=== PATIENT | male | born 1950 | race Caucasian/White ===

== ENCOUNTER 2019-09-26 08:23 | Outpatient (CLI) | payer BC, SELFPAY ==
[2019-09-26 08:44] LABS: Basophils Percent Auto 0.8 % (0.2-1.2); Eosinophils Absolute Auto 0.4 K/mm3 (0-0.3); Eosinophils Percent Auto 7.9 % (0-4.4); Hematocrit 37.1 % (42.0-52.0); Hemoglobin 12.4 g/dL (14.0-18.0); Immature Granulocyte Absolute 0.02 K/mm3 (0.00-0.031); Immature Granulocyte Percent A 0.4 % (0-0.5); Lymphocytes Absolute Auto 0.82 K/mm3 (0.9-3.2); Lymphocytes Percent Auto 17.4 % (18.3-44.2); Mean Corpuscular HGB Conc 33.4 g/dl (32-36); Mean Corpuscular Hemoglobin 35.1 pg (26-34); Mean Corpuscular Volume 105.1 fl (80-100); Mean Platelet Volume 8.7 fl (7.4-10.4); Monocytes Absolute Auto 0.6 K/mm3 (0.1-0.6); Monocytes Percent Auto 11.7 % (2.6-8.5); Neutrophils Absolute Auto 2.9 K/mm3 (1.3-6.7); Neutrophils Percent Auto 61.8 % (45.5-73.1); Platelet Count Result 123 k/mm3 (150-375); Red Blood Count 3.53 M/mm3 (4.6-6.20); Red Cell Distribution Width 13.2 % (11.5-14.5); White Blood Count 4.7 K/mm3 (4.5-10.0)
[2019-09-26 10:55] LABS: Blood Urea Nitrogen 29 mg/dL (9-20); Calcium 9.4 mg/dL (8.4-10.2); Carbon Dioxide 25 mmol/L (22-30); Chloride 102 mmol/L (98-107); Estimated Glomerular Filt Rate 60; Glucose 86 mg/dL (75-110); Potassium 4.7 mmol/L (3.4-5.0); Sodium 140 mmol/L (137-145)
== END 2019-09-26 08:24 | disposition home or self-care (01) ==
LOC: ANHLAB 08:25
PROVIDERS: PCP Family Medicine; Visit Provider Internal Medicine Hematology & Oncology
DX: D64.9 Anemia, unspecified (principal)
CPT/HCPCS: 36415; 80048; 82607; 82746; 85025

== ENCOUNTER 2020-05-29 08:26 | Outpatient (CLI) | payer BC, SELFPAY ==
[2020-05-29 08:42] LABS: Basophils Percent Auto 0.7 % (0.2-1.2); Eosinophils Absolute Auto 0.3 K/mm3 (0-0.3); Hematocrit 35.9 % (42.0-52.0); Hemoglobin 12.2 g/dL (14.0-18.0); Immature Granulocyte Absolute 0.02 K/mm3 (0.00-0.031); Immature Granulocyte Percent A 0.4 % (0-0.5); Lymphocytes Absolute Auto 0.84 K/mm3 (0.9-3.2); Lymphocytes Percent Auto 18.4 % (18.3-44.2); Mean Corpuscular Hemoglobin 35.7 pg (26-34); Mean Platelet Volume 8.6 fl (7.4-10.4); Monocytes Absolute Auto 0.5 K/mm3 (0.1-0.6); Monocytes Percent Auto 11.8 % (2.6-8.5); Neutrophils Absolute Auto 2.8 K/mm3 (1.3-6.7); Neutrophils Percent Auto 61.7 % (45.5-73.1); Platelet Count Result 126 k/mm3 (150-375); Red Blood Count 3.42 M/mm3 (4.6-6.20); Red Cell Distribution Width 12.8 % (11.5-14.5); White Blood Count 4.6 K/mm3 (4.5-10.0)
[2020-05-29 11:27] LABS: Alanine Aminotransferase 47 U/L (4-50); Albumin Level 3.9 g/dL (3.5-5.1); Alkaline Phosphatase 76 U/L (38-126); Anion Gap 8 mmol/L (8-16); Aspartate Amino Transferase 45 U/L (17-59); Bilirubin,Total 0.5 mg/dL (0.2-1.3); Blood Urea Nitrogen 36 mg/dL (9-20); Calcium 9.2 mg/dL (8.4-10.2); Carbon Dioxide 29 mmol/L (22-30); Chloride 104 mmol/L (98-107); Estimated Glomerular Filt Rate 60; Glucose 105 mg/dL (75-110); Potassium 5.2 mmol/L (3.4-5.0); Sodium 141 mmol/L (137-145)
[2020-05-29 12:34] LABS: Folic Acid 13.9 ng/mL (2.76->20)
== END 2020-05-29 08:27 | disposition home or self-care (01) ==
PROVIDERS: PCP Family Medicine; Visit Provider Internal Medicine Hematology & Oncology
DX: D64.9 Anemia, unspecified (principal)
CPT/HCPCS: 36415; 80053; 82607; 82746; 85025

== ENCOUNTER 2022-02-16 15:58 | Outpatient (CLI) | payer MEDICARE, SELFPAY ==
[2022-02-16 16:11] LABS: Hematocrit 30.7 % (42.0-52.0); Hemoglobin 10.3 g/dL (14.0-18.0); Mean Corpuscular HGB Conc 33.6 g/dl (32-36); Mean Corpuscular Hemoglobin 37.6 pg (26-34); Mean Platelet Volume 8.8 fl (7.4-10.4); Platelet Count Result 97 k/mm3 (150-375); Red Blood Count 2.74 M/mm3 (4.6-6.20); Red Cell Distribution Width 13.6 % (11.5-14.5); White Blood Count 4.7 K/mm3 (4.5-10.0)
[2022-02-16 16:35] LABS: Alanine Aminotransferase 43 U/L (6-50); Albumin Level 4.1 g/dL (3.5-5.1); Alkaline Phosphatase 112 U/L (38-126); Anion Gap 11 mmol/L (8-16); Aspartate Amino Transferase 94 U/L (17-59); Bilirubin,Total 0.6 mg/dL (0.2-1.3); Blood Urea Nitrogen 18 mg/dL (9-20); Calcium 8.9 mg/dL (8.4-10.2); Carbon Dioxide 25 mmol/L (22-30); Chloride 104 mmol/L (98-107); Estimated Glomerular Filt Rate 60; Glucose 104 mg/dL (65-110); Potassium 4.1 mmol/L (3.4-5.0); Sodium 140 mmol/L (137-145)
== END 2022-02-16 15:59 | disposition home or self-care (01) ==
LOC: ANHLAB 16:00
PROVIDERS: PCP Family Medicine; Visit Provider Internal Medicine Hematology & Oncology
DX: D53.9 Nutritional anemia, unspecified (principal)
CPT/HCPCS: 36415; 80053; 85027

== ENCOUNTER 2022-03-13 16:29 | Inpatient (IN) | payer MEDICARE, SELFPAY ==
[2022-03-13] VITALS (25 sets, daily range): BP systolic 88–124; BP diastolic 39–62; PULSE 8–84; RESP 14–22; TEMP 36.3–36.4; O2SAT 92–99; BMI 33.6
--- NOTE | ~2022-03-13 | US_ITS ---
EXAMINATION: US renal BI DATE: 03/14/2022 08:56 INDICATION: Acute on chronic renal failure. TECHNIQUE: Multiple ultrasound grayscale images of the kidneys were obtained. COMPARISON: Ultrasound 11/25/2015 FINDINGS: The right kidney measures 13.5 x 6.4 x 8.1 cm. The left kidney measures 5.1 x 2.3 x 2.3 cm. There is a 2.2 cm cyst in right kidney. The left kidney demonstrates increased parenchymal echogenicity, consi stent with nephropathy. There is no hydronephrosis. The bladder is decompressed. There is diffuse hep atic steatosis. IMPRESSION: 1. Normal right kidney size. Severe atrophy of left kidney. No hydronephrosis. 2. Diffuse hepatic steatosis. Reviewed, dictated and finalized at location A.
--- NOTE | ~2022-03-13 | XR_ITS ---
EXAMINATION: XR chest 1V portable Exam Date/Time: 03/13/2022 16:58 CDT HISTORY: weakness; dizziness, low BP, hx of 1 kidney, HTN, asthma Comparison: None available. RESULT: Lines, tubes, and devices: None. Lungs and pleura: Senescent changes, otherwise clear. Cardiomediastinal silhouette: Stable. Other: No acute osseous or upper abdominal finding. IMPRESSION: No acute cardiopulmonary process. Reviewed, dictated and finalized at location K.
--- NOTE | 2022-03-13 16:41 | ECG_ITS ---
Measurements Intervals [place] Rate: 64 P: 51 OK: 167 QRS: 8 QRSD: 117 T: 16 QT: 434 QTc: 449 Interpretive Statements SINUS RHYTHM LOW QRS VOLTAGE IN PRECORDIAL LEADS [QRS DEFLECTION < 1.0 mV IN CHEST LEADS] POOR R-WAVE PROGRESSION NO PREVIOUS ECG AVAILABLE FOR COMPARISON Electronically Signed On 03-13-2022 19:50:14 CDT by Hanna Oliveira M.D.
[2022-03-13 17:08] LABS: Basophils Percent Auto 0.7 % (0.2-1.2); Eosinophils Absolute Auto 0.2 K/mm3 (0-0.3); Eosinophils Percent Auto 2.7 % (0-4.4); Hematocrit 30.7 % (42.0-52.0); Hemoglobin 10.1 g/dL (14.0-18.0); Immature Granulocyte Absolute 0.02 K/mm3 (0.00-0.031); Immature Granulocyte Percent A 0.3 % (0-0.5); Lymphocytes Absolute Auto 1.35 K/mm3 (0.9-3.2); Mean Corpuscular HGB Conc 32.9 g/dl (32-36); Mean Corpuscular Hemoglobin 37.3 pg (26-34); Mean Corpuscular Volume 113.3 fl (80-100); Mean Platelet Volume 10.7 fl (7.4-10.4); Monocytes Absolute Auto 0.5 K/mm3 (0.1-0.6); Neutrophils Absolute Auto 3.8 K/mm3 (1.3-6.7); Neutrophils Percent Auto 64.3 % (45.5-73.1); Platelet Count Result 132 k/mm3 (150-375); Red Blood Count 2.71 M/mm3 (4.6-6.20); Red Cell Distribution Width 13.6 % (11.5-14.5); White Blood Count 5.9 K/mm3 (4.5-10.0)
--- NOTE | 2022-03-13 17:18 | ED.WEAKNESS ---
HPI - Weakness General Chief complaint: Weakness Stated complaint: weakness, low blood pressure Time Seen by Provider: 03/13/22 17:00 History of Present Illness HPI Narrative: 71-year-old male presenting due to weakness and lightheadedness, he states that he was on a [place] cruise for the last 3 weeks, and had been feeling somewhat lightheaded there but felt much worse today so he came in. Denies any nausea or vomiting or diarrhea, fevers or chills, cough or difficulty breathing, chest pain or dysuria. No skin rashes other than he bruises easily Related Data Home Medications Medication Instructions Recorded Confirmed labetalol 100 mg tablet 100 mg PO DAILY 06/29/19 11/25/21 quinapril 40 mg tablet 40 mg PO DAILY 06/29/19 11/25/21 terazosin 2 mg capsule 2 mg PO DAILY 06/29/19 11/25/21 amlodipine 5 mg tablet 5 mg PO DAILY 07/02/19 11/25/21 chlorthalidone 25 mg tablet 25 mg PO DAILY 07/02/19 11/25/21 fmcyuiansjmj-sequriyg-bmacfe tablet 1 tablet PO DAILY 07/02/19 11/25/21 cyanocobalamin (vitamin B-12) 1,000 mcg PO DAILY 05/06/21 11/25/21 1,000 mcg capsule Allergies Allergy/AdvReac Type Severity Reaction Status Date / Time No Known Allergies Allergy Verified 03/13/22 16:49 Review of Systems Review of Systems: CONST: No fever. HEENT: No sore throat C/V: No chest pain RESP: No cough GI: No nausea, vomiting or diarrhea : No dysuria. M/S: No joint pain. SKIN: No rash. NEURO: Lightheadedness PSYCH: [No depression] [facility], [facility] Past Medical History Medical History Acute maxillary sinusitis, unspecified Acute pneumonitis Asthma exacerbation, mild BMI 37.0-37.9, adult BMI 38.0-38.9,adult BMI 39.0-39.9,adult History of skin cancer in adulthood Mild intermittent asthma without complication Family History Family History Father Hypertension Family history of lung cancer Patient's father is Mother Family history of Alzheimer's disease Sibling Patient's brother is in good health Grandparent Cerebrovascular accident, Onset Age: 64 Social History Social History Alcohol intake: current Exam Narrative: EXAMINATION OF ORGAN SYSTEMS/BODY AREAS: Constitutional: Vital signs per nursing GENERAL:[No acute distress, non-toxic appearing.] HEAD: Normal with no signs of head trauma. EYES: EOMI, conjunctiva normal ENT: Hearing grossly intact LUNGS: Nonlabored breathing. HEART: [Regular rate and rhythm] ABD: [Soft], [nontender to palpation] EXT: Normal range of motion, bruising and skin tear over left arm SKIN: Bruising and skin tear over left arm, no decubitus ulcers NEURO: [Alert and oriented x 3 though is very slightly slow to respond. No gross focal sensory or strength deficits.] PSYCH: Normal affect Course Vital Signs Vital signs: Vital Signs Temperature 97.6 F 03/13/22 16:45 Pulse Rate 63 03/13/22 16:45 Respiratory Rate 14 03/13/22 16:45 Blood Pressure 88/43 L 03/13/22 16:45 Pulse Oximetry 96 03/13/22 16:45 Oxygen Delivery Room Air 03/13/22 16:45 Temperature 97.6 F 03/13/22 16:45 Pulse Rate 71 03/13/22 18:02 Respiratory Rate 17 03/13/22 18:02 Blood Pressure 93/39 L 03/13/22 18:02 Pulse Oximetry 96 03/13/22 18:02 Oxygen Delivery Room Air 03/13/22 16:45 Procedures Central Line Placement Right IJ: Central Line Date: 03/13/22 Discussed w/ the patient/family/POA,the placement of a central venous catheter, including its clinical necessity/indication & associated potential risks, benifits and alternatives.: Yes The patient/family/POA understand(s) and acknowledge(s) the need to proceed with central venous catheter insertion as an important element of the patient's clinical management.: Yes Patient Placed on Monitor/Pulse Ox: Yes Max. Sterile Barrier
[2022-03-13 17:19] LABS: Alanine Aminotransferase 51 U/L (6-50); Albumin Level 4.3 g/dL (3.5-5.1); Alkaline Phosphatase 99 U/L (38-126); Anion Gap 18 mmol/L (8-16); Aspartate Amino Transferase 61 U/L (17-59); Bilirubin,Total 0.5 mg/dL (0.2-1.3); Blood Urea Nitrogen 94 mg/dL (9-20); Calcium 9.4 mg/dL (8.4-10.2); Carbon Dioxide 13 mmol/L (22-30); Chloride 108 mmol/L (98-107); Estimated CRCL calculation 20 ml/min; Estimated Glomerular Filt Rate 14; Glucose 103 mg/dL (65-110); Potassium 5.7 mmol/L (3.4-5.0); Sodium 139 mmol/L (137-145)
[2022-03-13 17:19] LABS: Lactic Acid Reflex 2.2 mmol/L (0.7-2.0)
[2022-03-13 19:24] LABS: Appearance Urine Clear (Clear); Bilirubin Urine 1+ (Negative); Blood Urine Negative (Negative); Color Urine Yellow (Yellow); Glucose Urine UA Negative (Negative); Ketones Urine 1+ mg/dL (Negative); Leukocyte Esterase Ur Negative LEU/UL (Negative); Nitrate Urine Negative (Negative); Protein Urine Negative (Negative); Specific Grav Ur 1.025 (1.001-1.035); Urobilinogen Urine 0.2 mg/dL (<2.0)
[2022-03-13 19:30] LABS: Mucus Urine Rare /lpf; RBC Urine 0-2 /hpf (0-2); Squamous Epithelial Cell Urine Rare /hpf (Few); WBC Urine 0-3 /hpf
[2022-03-13 19:31] LABS: Add Urine Microscopic? YES
[2022-03-13] MEDS: SODIUM ZIRCONIUM CYCLOSILICATE 10 GM POWD.PACK PO (19:41)
[2022-03-13] MEDS: SODIUM BICARBONATE 8.4% 150 MEQ in DEXTROSE 5% 1,000 ML 950 ML 50 MEQ IV CONT (19:43)
[2022-03-13 20:02] LABS: Reflex Lactic Acid Yes or No Add Lactic
[2022-03-13 20:56] LABS: Lactic Acid 2.9 mmol/L (0.7-2.0)
--- NOTE | 2022-03-13 21:08 | PC.NURSE ---
This patient, Blayne Cisneros, was admitted to Intensive Care Unit-9 at 2030. Patient/family oriented to hospital policies and general routines including ID bracelet, bed and alarms, visiting hours, pain management, procedures, bathroom and other care routines, personal items, smoking policy, room service/diet, and visiting hours. Information on how to activate the Rapid Response Team has been discussed. Patient/Family are encouraged to report perceived risks to care and to ask questions if they do not understand what they are told or what they should do.
--- NOTE | 2022-03-13 23:01 | PM.IMHP ---
H&P: HPI History of Present Illness Date/Time: 03/13/22 23:01 Chief Complaint: Weakness with low blood pressure Narrative: this is a 71-year-old male patient who came to the emergency room due to weakness and lightheadedness. The patient stated that he has been on a [place] cruise for last 3 weeks. The patient stated that he has been having diarrhea and started on his trip. He did not notice any blood in his stool. The patient has been feeling lightheaded but felt much worse today. The patient stated that he would go on site seeing trips that lasted 3-4 hours and he would do a lot a walking. The patient is also on a diuretic. He denies any fever chills. He does have chronic renal failure and has seen Dr. Chisholm in the past. He also has a history of unilateral renal hypoplasia. H&H is 10.1 and 30.7 which is his baseline. Patient's creatinine is 4.2 with a previous creatinine 1.2 last month. BUN is 94. The patient's GFR is 14 with a previous value of 60 but last month. Lactic was 2.2 now 2.9. Patient continues to have diarrhea today. AST 61 ALT is 51. nephrology has been consulted. The patient was started on bicarb IV and given normal saline and 2 L of lactated Ringer's. He was also given Lokelma for potassium of 5.7. A central line was attempted in the emergency room per ED physician and was an able to get the guidewire to advance. By that time the patient's blood pressure had improved. No vasopressors were started at that time. Histology Technician had been consulted. The patient is being admitted into ICU as inpatient on the date of service of 03/13/2022. Review of Systems Review of Systems: See HPI All systems reviewed & are unremarkable except as noted in HPI and below Constitutional: Constitutional: Reports as per HPI and Reports no additional constitutional complaints Eyes: Eyes: Reports as per HPI and Reports no additional eye complaints ENT: Reports system reviewed and no additional complaints, except as documented and Reports Normal hearing present Cardiovascular: Cardiovascular: Reports no additional cardiovascular complaints Respiratory: Respiratory: Reports no additional respiratory complaints and Reports no additional respiratory complaints Gastrointestinal: Gastrointestinal: Reports as per HPI and Reports no additional gastrointestinal complaints Musculoskeletal: Musculoskeletal: Reports no additional musculoskeletal complaints Integumentary/Breasts: Skin/Breast: Reports system reviewed and no additional complaints, except as docu and Reports as per HPI Neurologic: Reports system reviewed and no additional complaints, except as documented, Reports as per HPI and Reports Normal hearing present Psychiatric: Psychiatric: Reports no additional psychiatric complaints and Reports as per HPI Endocrine: Endocrine: Reports no additional endocrine complaints Hematologic/Lymphatic: Hematologic/Lymphatic: Reports no additional hematologic/lymphatic complaints Allergic/Immunologic: Allergic/Immunologic: Reports no additional allergic/immunologic complaints [facility] Past Medical History Medical History (Updated 03/13/22 @ 23:22 by Maryjane Peguero NP) Acute maxillary sinusitis, unspecified Acute pneumonitis Asthma exacerbation, mild BMI 37.0-37.9, adult BMI 38.0-38.9,adult BMI 39.0-39.9,adult Cataract Depression History of skin cancer in adulthood Hyperlipidemia Laceration Mild intermittent asthma without complication JENNIFER on CPAP PND (post-nasal drip) URI, acute Surgical History Surgical History (Updated 03/13/22 @ 23:12 by Maryjane Peguero NP) H/O arthroscopy of left knee H/O cataract extraction H/O rectal polypectomy History of removal of pigmented skin lesion Family History Family History Father Hypertension Family history of lung cancer Patient's father is Mother Family history of Alzheimer's disease Sibling
[2022-03-13 23:49] LABS: Alanine Aminotransferase 44 U/L (6-50); Albumin Level 3.5 g/dL (3.5-5.1); Alkaline Phosphatase 94 U/L (38-126); Anion Gap 13 mmol/L (8-16); Aspartate Amino Transferase 55 U/L (17-59); Bilirubin,Total 0.4 mg/dL (0.2-1.3); Blood Urea Nitrogen 87 mg/dL (9-20); CRP 0.9 mg/dL (<1.0); Calcium 9.3 mg/dL (8.4-10.2); Carbon Dioxide 15 mmol/L (22-30); Chloride 107 mmol/L (98-107); Creatine Kinase 51 U/L (55-170); Estimated CRCL calculation 21 ml/min; Estimated Glomerular Filt Rate 16; Glucose 106 mg/dL (65-110); Magnesium 1.8 mg/dL (1.6-2.3); Potassium 5.5 mmol/L (3.4-5.0); Sodium 135 mmol/L (137-145)
[2022-03-13] MEDS: AZELASTINE HCL NASAL 0.1% 137 MCG/SPR 30 ML BTL 1 SPRAY NASAL (23:49)
[2022-03-14] VITALS (17 sets, daily range): BP systolic 114–138; BP diastolic 57–74; PULSE 72–88; RESP 15–22; TEMP 36.2–36.7; O2SAT 96–99
[2022-03-14 00:14] LABS: Basophils Percent Auto 0.2 % (0.2-1.2); Eosinophils Absolute Auto 0.1 K/mm3 (0-0.3); Eosinophils Percent Auto 1.7 % (0-4.4); Hematocrit 28.9 % (42.0-52.0); Hemoglobin 9.4 g/dL (14.0-18.0); Immature Granulocyte Absolute 0.02 K/mm3 (0.00-0.031); Immature Granulocyte Percent A 0.3 % (0-0.5); Lymphocytes Absolute Auto 0.86 K/mm3 (0.9-3.2); Lymphocytes Percent Auto 14.7 % (18.3-44.2); Mean Corpuscular HGB Conc 32.5 g/dl (32-36); Mean Corpuscular Volume 113.8 fl (80-100); Mean Platelet Volume 10.2 fl (7.4-10.4); Monocytes Absolute Auto 0.5 K/mm3 (0.1-0.6); Monocytes Percent Auto 8.2 % (2.6-8.5); Neutrophils Absolute Auto 4.4 K/mm3 (1.3-6.7); Neutrophils Percent Auto 74.9 % (45.5-73.1); Platelet Count Result 109 k/mm3 (150-375); Red Blood Count 2.54 M/mm3 (4.6-6.20); Red Cell Distribution Width 13.6 % (11.5-14.5); White Blood Count 5.9 K/mm3 (4.5-10.0)
[2022-03-14 00:15] LABS: Lactic Acid Reflex 1.2 mmol/L (0.7-2.0)
[2022-03-14 00:29] LABS: Macrocytosis 1+ (NORMAL)
[2022-03-14 00:40] LABS: Erythrocyte Sedimentation Rate 135 mm/hr (0-20)
[2022-03-14] MEDS: metroNIDAZOLE 500 MG/ISO 100ML 500 MG/100 ML BAG 100 MG IVPB ×4 (00:41→16:57)
[2022-03-14 01:20] LABS: Complement C3 120 mg/dL (88-165)
[2022-03-14 01:37] LABS: Hepatitis B Surface Antigen Negative (Negative)
[2022-03-14 01:54] LABS: Hepatitis B Core IgM Result Negative (Negative); Hepatitis C Virus Antibody Negative (Negative)
--- NOTE | 2022-03-14 01:55 | PC.NURSE ---
0145: Patient admits to drinking 3 Yossi Blayne's every evening and states complaints of feeling restless at this time. made aware. New orders received.
[2022-03-14 02:08] LABS: Hepatitis B Core Antibody, IgM 0.03 S/C
[2022-03-14 02:09] LABS: Hepatitis C Virus Antibody 0.01 S/C
[2022-03-14 02:21] LABS: HIV 1/2 Ab P24 Ag Result Negative (Negative)
[2022-03-14 02:38] LABS: Hepatitis B Surface Anti Res Negative
[2022-03-14 02:42] LABS: IFOB Positive Control Positive; Immunochemical Fecal Occult Bl Negative (N)
[2022-03-14 02:58] LABS: Eosinophil Urine None Seen % (None Seen)
[2022-03-14 03:55] LABS: Creatinine Urine 92.3 mg/dL; Total Protein Urine Random 15 mg/dL; Ur Ttl Prot Creatinine Ratio 0.16 mg/mg (0-0.20)
[2022-03-14 04:23] LABS: Potassium Urine Random 12.4 meq/L; Sodium Urine Random 63 meq/L
[2022-03-14] MEDS: SODIUM BICARBONATE 8.4% 150 MEQ in DEXTROSE 5% 1,000 ML 950 ML IV CONT (06:41)
[2022-03-14 06:50] LABS: Lactic Acid Reflex 1.3 mmol/L (0.7-2.0)
[2022-03-14 06:51] LABS: Alanine Aminotransferase 43 U/L (6-50); Albumin Level 3.5 g/dL (3.5-5.1); Alkaline Phosphatase 96 U/L (38-126); Anion Gap 10 mmol/L (8-16); Aspartate Amino Transferase 53 U/L (17-59); Bilirubin,Total 0.7 mg/dL (0.2-1.3); Blood Urea Nitrogen 86 mg/dL (9-20); Calcium 9.2 mg/dL (8.4-10.2); Carbon Dioxide 19 mmol/L (22-30); Chloride 106 mmol/L (98-107); Estimated CRCL calculation 27 ml/min; Estimated Glomerular Filt Rate 20; Glucose 119 mg/dL (65-110); Lactate Dehydrogenase 151 U/L (120-246); Magnesium 1.7 mg/dL (1.6-2.3); Potassium 5.3 mmol/L (3.4-5.0); Sodium 135 mmol/L (137-145)
[2022-03-14 06:55] LABS: Basophils Percent Auto 0.4 % (0.2-1.2); Eosinophils Absolute Auto 0.1 K/mm3 (0-0.3); Eosinophils Percent Auto 1.7 % (0-4.4); Hematocrit 29.6 % (42.0-52.0); Hemoglobin 9.6 g/dL (14.0-18.0); Immature Granulocyte Absolute 0.02 K/mm3 (0.00-0.031); Immature Granulocyte Percent A 0.4 % (0-0.5); Immature Platelet Fraction Pct 2.4 % (0.9-11.2); Lymphocytes Absolute Auto 0.77 K/mm3 (0.9-3.2); Lymphocytes Percent Auto 14.3 % (18.3-44.2); Mean Corpuscular HGB Conc 32.4 g/dl (32-36); Mean Corpuscular Hemoglobin 37.4 pg (26-34); Mean Corpuscular Volume 115.2 fl (80-100); Mean Platelet Volume 10.2 fl (7.4-10.4); Monocytes Absolute Auto 0.6 K/mm3 (0.1-0.6); Monocytes Percent Auto 10.4 % (2.6-8.5); Neutrophils Absolute Auto 3.9 K/mm3 (1.3-6.7); Neutrophils Percent Auto 72.8 % (45.5-73.1); Platelet Count Result 104 k/mm3 (150-375); Red Blood Count 2.57 M/mm3 (4.6-6.20); Red Cell Distribution Width 13.6 % (11.5-14.5); White Blood Count 5.4 K/mm3 (4.5-10.0)
[2022-03-14] MEDS: AZELASTINE HCL NASAL 0.1% 137 MCG/SPR 30 ML BTL 1 SPRAY NASAL ×2 (08:19→20:19)
[2022-03-14] MEDS: ESCITALOPRAM OXALATE 10 MG TABLET PO (08:19)
[2022-03-14] MEDS: CYANOCOBALAMIN 1,000 MCG TABLET 1000 MCG PO ×2 (08:19→16:58)
[2022-03-14] MEDS: OPTI-GEN TAB 1 TABLET PO (08:19)
[2022-03-14] MEDS: ALBUTEROL SULFATE NEB 2.5 MG/3 ML INH 10 MG INHALATION (08:34)
[2022-03-14] MEDS: INSULIN HUMAN REGULAR (*BKC) 100 UNITS/ML 10 UNITS IV PUSH (09:34)
[2022-03-14] MEDS: DEXTROSE 50% 25 GM/50 ML SYRINGE IV PUSH (09:34)
[2022-03-14] MEDS: SODIUM BICARBONATE 8.4% 50 MEQ/50 ML SYRINGE IV PUSH (09:34)
[2022-03-14] MEDS: SODIUM ZIRCONIUM CYCLOSILICATE 10 GM POWD.PACK PO (09:35)
--- NOTE | 2022-03-14 10:06 | PM.CNNEP ---
Assessment and Plan Assessment and plan (1) Acute kidney injury: Code(s): N17.9 - Acute kidney failure, unspecified Status: Acute Assessment and Plan: Patient has a baseline creatinine of 1.53. The chronic kidney disease is from the lack of 1 kidney, chronic hypertension, and probably vascular disease. On Admission his creatinine was 4.2. Is has improved to 3.1 with fluids. Renal ultrasound shows normal right kidney. Interestingly his urine electrolytes show non pre renal findings. This might have been checked a few hours after he was already getting IV fluids. The patient has acute kidney injury. Most likely this is due to dehydration and low blood pressure. Obstruction could cause it as well however renal ultrasound is unremarkable. CK is 51 so rhabdomyolysis has been excluded. Glomerulonephritis and interstitial nephritis are unlikely in this clinical scenario with the urinalysis findings. At this point continue IV fluids. discussed with Dr Lynch (2) Chronic kidney disease, stage 3a: Code(s): N18.31 - Chronic kidney disease, stage 3a Status: Acute Assessment and Plan: Due to hypertension, vascular disease, and unilateral renal agenesis. (3) Diarrhea: Code(s): R19.7 - Diarrhea, unspecified Status: Acute Assessment and Plan: Stools are being sent for pathogens. Says his diarrhea is a little better (4) Essential hypertension: Code(s): I10 - Essential (primary) hypertension Status: Acute Assessment and Plan: His blood pressure is doing better now. His blood pressure meds are on hold for now. (5) Unspecified asthma, uncomplicated: Qualifiers: Asthma severity: mild Asthma persistence: intermittent Qualified Code(s): J45.20 - Mild intermittent asthma, uncomplicated Code(s): J45.909 - Unspecified asthma, uncomplicated Status: Acute Assessment and Plan: No symptoms (6) Hyperlipidemia: Code(s): E78.5 - Hyperlipidemia, unspecified Status: Acute Assessment and Plan: He is on atorvastatin (7) JENNIFER on CPAP: Code(s): G47.33 - Obstructive sleep apnea (adult) (pediatric); Z99.89 - Dependence on other enabling machines and devices Status: Acute Assessment and Plan: He uses a CPAP machine History of Present Illness Reason for Consult Consult date: 03/14/22 Chief Complaint Chief complaint: hypotension, arf History of Present Illness Narrative: Blayne is a very pleasant 71-year-old gentleman who has multiple medical problems including chronic kidney disease stage IIIA with a baseline creatinine of 1.3 unilateral renal agenesis, asthma, obesity, sleep apnea, hyperlipidemia, hypertension, anemia, depression. The patient went on a cruise to the [facility]. There he took multiple 2 or 3hour walks for excursions from the boat and it was very hot out there with a temperature up to 90-100. He was only given one 16oz bottle of water to drink while on the walk. In addition the patient developed diarrhea while he was on the clear. He had 3 in voluminous stools which were watery each night. He did not have bowel movements during the day for some reason. He did not have any blood in his stools, belly pain, nausea, vomiting, fevers, or sick contacts. Of course he was eating food over there. He was not making much urine looking back on it he says. He came back in town about a week ago or so and was dizzy when he stood up. He would go out but just feel poorly and even had some visual changes. Yesterday he decided to come to the ER after being encouraged by his . On evaluation in the ER his blood pressure was low, he was found to have a high BUN creatinine, and he looked dehydrated. The patient received some IV fluids and was admitted to the ICU because of his low blood pressure. After some IV fluids the blood pressure is improved. He says his urine output has improved as well.
--- NOTE | 2022-03-14 11:00 | WPDCNINT ---
Assessment and Plan Assessment and plan (1) Acute hypotension: Code(s): I95.9 - Hypotension, unspecified Status: Acute Assessment and Plan: Sepsis with hypotension, lactic acidosis, acute kidney injury, lactic acidosis -most likely related to diarrhea, hypovolemia/dehydration -stool samples have been sent for culture -will send stool for norovirus as patient has been on the [place] cruise for 3 weeks -patient has been adequately fluid-resuscitated, blood pressures have been stable -continue maintenance IV fluids -patient has not required any pressors (2) Acute kidney injury: Code(s): N17.9 - Acute kidney failure, unspecified Status: Acute Assessment and Plan: Acute kidney injury most likely related to diarrhea, hypovolemia, dehydration -continue sodium bicarb IV fluids as patient is acidotic, will decrease rate to 100 mL/hour as patient also adequately taking oral diet and fluids -creatinine is improving -CK levels within normal limits -due to monitor urine output, renal function and electrolytes -appreciate Nephrology evaluation and recommendations (3) Acute dehydration: Code(s): E86.0 - Dehydration Status: Acute Assessment and Plan: Continue IV fluids (4) Diarrhea: Code(s): R19.7 - Diarrhea, unspecified Status: Acute Assessment and Plan: Diarrhea has improved, -was stool cultures and stool for norovirus has been ordered Continue Flagyl and ceftriaxone (03/13) (5) Chronic kidney disease, stage 3a: Code(s): N18.31 - Chronic kidney disease, stage 3a Status: Acute Assessment and Plan: Patient has history of chronic kidney disease stage 3, nephrology following the patient (6) Essential hypertension: Code(s): I10 - Essential (primary) hypertension Status: Acute Assessment and Plan: Hold antihypertensives for now as patient was hypotensive the ER (7) Unspecified asthma, uncomplicated: Qualifiers: Asthma severity: mild Asthma persistence: intermittent Qualified Code(s): J45.20 - Mild intermittent asthma, uncomplicated Code(s): J45.909 - Unspecified asthma, uncomplicated Status: Acute Assessment and Plan: Continue bronchodilators (8) Hyperlipidemia: Code(s): E78.5 - Hyperlipidemia, unspecified Status: Acute (9) JENNIFER on CPAP: Code(s): G47.33 - Obstructive sleep apnea (adult) (pediatric); Z99.89 - Dependence on other enabling machines and devices Status: Acute Assessment and Plan: CPAP at night Plan DVT prophylaxis: SCDs, patient ambulating Nutrition: Heart healthy diet Discussed with patient, his and his son and updated them with patient's condition and plan of care. I answered all questions Discussed with Nephrology Code Status: Full code Critical Care Time Spent: 43 minutes Due to a high probability of clinically significant, life threatening deterioration, the patient required my highest level of preparedness to intervene emergently and I personally spent this critical care time directly and personally managing the patient. This critical care time included obtaining a history; examining the patient; pulse oximetry; ordering and review of studies; arranging urgent treatment with development of a management plan; evaluation of patient's response to treatment; frequent reassessment; and discussions with other providers. It was exclusive of separately billable procedures and treating other patients and teaching time. Please see Assessment and Plan section and the rest of the note for further information on patient assessment and treatment Manager Sports Consult Note Consult date: 03/14/22 Reason for consult: Acute kidney injury, hypotension, diarrhea, dehydration/hypovolemia HPI: Blayne Slaughter Brianvern is a 71 year old male with past medical history of pneumonitis, asthma, depression, hyperlipidemia, 1 kidney, obstructive sleep apnea on C
[2022-03-14 11:39] LABS: Free T4 Free Thyroxine Reflex 0.97 ng/dL (0.78-2.19)
[2022-03-14 12:30] LABS: Anion Gap 11 mmol/L (8-16); Blood Urea Nitrogen 81 mg/dL (9-20); Calcium 9.5 mg/dL (8.4-10.2); Carbon Dioxide 24 mmol/L (22-30); Chloride 104 mmol/L (98-107); Estimated CRCL calculation 28 ml/min; Estimated Glomerular Filt Rate 21; Glucose 91 mg/dL (65-110); Potassium 4.5 mmol/L (3.4-5.0); Sodium 139 mmol/L (137-145)
--- NOTE | 2022-03-14 12:45 | PC.NURSE ---
This patient, Blayne Cisneros, was transferred to [facility] on 03/14/22 at 1240. Personal belongings sent with patient. Report given to Sienna VIZCARRA. Appropriate documentation sent with patient. Family with patient at time of transfer.
--- NOTE | 2022-03-14 13:34 | PM.IMPN ---
Progress Note: A&P Assessment and Plan (1) Acute hypotension: Code(s): I95.9 - Hypotension, unspecified Status: Acute Assessment and Plan: Sepsis with hypotension, lactic acidosis, acute kidney injury, lactic acidosis -most likely related to diarrhea, hypovolemia/dehydration -stool samples have been sent for culture -will send stool for norovirus as patient has been on the [place] cruise for 3 weeks -patient has been adequately fluid-resuscitated, blood pressures have been stable -continue maintenance IV fluids -patient has not required any pressors 03/14/2022 interval history: patient presented to emergency depart with weakness and lightheadedness with BUN 94 and creatinine 4.2 patient was severely dehydrated secondary to poor p.o. intake heat exhaustion initially patient was admitted in ICU suspect patient may need pressor, however patient responded well to IV fluid patient was aggressively hydrated his clinical symptoms are improved and his BUN and creatinine has trended down 81/2.9, upon arrival patient potassium was elevated most likely secondary to dehydration and hemoconcentration patient was hydrated and was given Lokelma today patient potassium is 4.5, will continue to monitor patient will have a PT OT evaluate the patient patient will benefit with rehab. (2) Acute kidney injury: Code(s): N17.9 - Acute kidney failure, unspecified Status: Acute Assessment and Plan: Acute kidney injury most likely related to diarrhea, hypovolemia, dehydration -continue sodium bicarb IV fluids as patient is acidotic, will decrease rate to 100 mL/hour as patient also adequately taking oral diet and fluids -creatinine is improving -CK levels within normal limits -due to monitor urine output, renal function and electrolytes -appreciate Nephrology evaluation and recommendations (3) Acute dehydration: Code(s): E86.0 - Dehydration Status: Acute Assessment and Plan: Continue IV fluids (4) Diarrhea: Code(s): R19.7 - Diarrhea, unspecified Status: Acute Assessment and Plan: Diarrhea has improved, -was stool cultures and stool for norovirus has been ordered Continue Flagyl and ceftriaxone (03/13) (5) Chronic kidney disease, stage 3a: Code(s): N18.31 - Chronic kidney disease, stage 3a Status: Acute Assessment and Plan: Patient has history of chronic kidney disease stage 3, nephrology following the patient (6) Essential hypertension: Code(s): I10 - Essential (primary) hypertension Status: Acute Assessment and Plan: Hold antihypertensives for now as patient was hypotensive the ER (7) Unspecified asthma, uncomplicated: Qualifiers: Asthma severity: mild Asthma persistence: intermittent Qualified Code(s): J45.20 - Mild intermittent asthma, uncomplicated Code(s): J45.909 - Unspecified asthma, uncomplicated Status: Acute Assessment and Plan: Continue bronchodilators (8) Hyperlipidemia: Code(s): E78.5 - Hyperlipidemia, unspecified Status: Acute (9) JENNIFER on CPAP: Code(s): G47.33 - Obstructive sleep apnea (adult) (pediatric); Z99.89 - Dependence on other enabling machines and devices Status: Acute Assessment and Plan: CPAP at night Subjective Date/time seen: 03/14/22 13:34 ?Weakness with low blood pressure HPI-Narrative: ?this is a 71-year-old male patient who came to the emergency room due to weakness and lightheadedness.? The patient stated that he has been on a [place] for last 3 weeks.? The patient stated that he has been having diarrhea and started on his trip.? He did not notice any blood in his stool.? The patient has been feeling lightheaded but felt? much worse today.? The patient stated that he would go on site seeing trips that lasted 3-4 hours and he would do a lot a walking.? The patient is also on a diuretic.? He denies any fever chills.? He mckeon
[2022-03-14 13:43] LABS: Total Triiodothyronine (T3) 0.85 NG/ML (0.97-1.69)
[2022-03-14] MEDS: SODIUM BICARBONATE 8.4% 150 MEQ in DEXTROSE 5% 1,000 ML 950 ML 100 MEQ IV CONT (13:47)
[2022-03-14] MEDS: MONTELUKAST SODIUM 10 MG TABLET PO (20:18)
[2022-03-15] MEDS: metroNIDAZOLE 500 MG/ISO 100ML 500 MG/100 ML BAG 100 MG IVPB ×4 (00:02→16:37)
[2022-03-15] MEDS: SODIUM BICARBONATE 8.4% 150 MEQ in DEXTROSE 5% 1,000 ML 950 ML 100 MEQ IV CONT ×3 (00:03→22:38)
[2022-03-15 05:04] VITALS: BP 126/76; PULSE 90; RESP 18; TEMP 36.7; O2SAT 98
[2022-03-15 06:51] LABS: Basophils Percent Auto 0.3 % (0.2-1.2); Eosinophils Absolute Auto 0.1 K/mm3 (0-0.3); Eosinophils Percent Auto 2.8 % (0-4.4); Hematocrit 29.2 % (42.0-52.0); Hemoglobin 9.7 g/dL (14.0-18.0); Immature Granulocyte Absolute 0.02 K/mm3 (0.00-0.031); Immature Granulocyte Percent A 0.5 % (0-0.5); Lymphocytes Absolute Auto 0.59 K/mm3 (0.9-3.2); Lymphocytes Percent Auto 14.9 % (18.3-44.2); Mean Corpuscular HGB Conc 33.2 g/dl (32-36); Mean Corpuscular Hemoglobin 36.6 pg (26-34); Mean Corpuscular Volume 110.2 fl (80-100); Mean Platelet Volume 10.1 fl (7.4-10.4); Monocytes Absolute Auto 0.4 K/mm3 (0.1-0.6); Monocytes Percent Auto 9.1 % (2.6-8.5); Neutrophils Absolute Auto 2.9 K/mm3 (1.3-6.7); Neutrophils Percent Auto 72.4 % (45.5-73.1); Platelet Count Result 93 k/mm3 (150-375); Red Blood Count 2.65 M/mm3 (4.6-6.20); Red Cell Distribution Width 13.2 % (11.5-14.5)
[2022-03-15 07:12] LABS: Alanine Aminotransferase 38 U/L (6-50); Albumin Level 3.7 g/dL (3.5-5.1); Alkaline Phosphatase 92 U/L (38-126); Anion Gap 7 mmol/L (8-16); Aspartate Amino Transferase 48 U/L (17-59); Bilirubin,Total 0.5 mg/dL (0.2-1.3); Blood Urea Nitrogen 71 mg/dL (9-20); Calcium 8.6 mg/dL (8.4-10.2); Carbon Dioxide 33 mmol/L (22-30); Chloride 98 mmol/L (98-107); Creatine Kinase 77 U/L (55-170); Estimated CRCL calculation 37 ml/min; Estimated Glomerular Filt Rate 30; Glucose 116 mg/dL (65-110); Magnesium 1.5 mg/dL (1.6-2.3); Phosphorus 3.9 mg/dL (2.5-4.5); Potassium 4.5 mmol/L (3.4-5.0); Sodium 138 mmol/L (137-145)
[2022-03-15] MEDS: AZELASTINE HCL NASAL 0.1% 137 MCG/SPR 30 ML BTL 1 SPRAY NASAL ×2 (08:49→20:39)
[2022-03-15] MEDS: OPTI-GEN TAB 1 TABLET PO (08:50)
[2022-03-15] MEDS: ESCITALOPRAM OXALATE 10 MG TABLET PO (08:50)
[2022-03-15] MEDS: CYANOCOBALAMIN 1,000 MCG TABLET 1000 MCG PO ×2 (08:50→16:37)
[2022-03-15 13:31] VITALS: BP 135/72; PULSE 91; RESP 18; TEMP 36.2; O2SAT 99
--- NOTE | 2022-03-15 13:52 | P.PNNP_ITS ---
Progress Note: A&P Assessment and Plan (1) Acute kidney injury: Code(s): N17.9 - Acute kidney failure, unspecified Status: Acute Assessment and Plan: * peak creatinine at 4.2mg/dl * likely secondary to volume depletion and hypotension * evaluation to date: * renal ultrasound with normal right kidney * CKP normal * urine electrolytes non-prerenal (may be misleading since he received significant IVF resuscitation before these were done) * creatinine improving with IVFs * would contiue IVFs for now/overnight and then wean off tomorrow (2) Chronic kidney disease, stage 3a: Code(s): N18.31 - Chronic kidney disease, stage 3a Status: Acute Assessment and Plan: * baseline creatinine runs ~ 1.5mg/dl at baseline * due to hypertension, vascular disease, and unilateral renal agenesis (3) Diarrhea: Code(s): R19.7 - Diarrhea, unspecified Status: Acute Assessment and Plan: * diarrhea seems to be doing better * on metronidazole * stool studies pending (4) Essential hypertension: Code(s): I10 - Essential (primary) hypertension Status: Acute Assessment and Plan: * BP doing better * BP medications on hold sine admission * follow trend of hemodynamics Discussed case with Dr. Garcia along with patient and his at bedside (> 20 minutes) regarding the above issues and plan of care as outlined. Will continue to follow. Subjective Date/time seen: 03/15/22 13:52 Chart reviewed - assuming care from Dr. Chisholm; transferred out of ICU; overall, seems to be doing reasonably well; anxious for discharge but is aware that renal function still not back to baseline; at bedside and we discussed the case/situation. Exam Narrative: General: WD/WN male in NAD Heart: normal S1 and S2; no rub Lungs: clear to auscultation Abdomen: soft, nontender, nondistended, positive bowel sounds Extremities: no cyanosis or clubbing; no edema Skin: warm and dry Objective Data Vital Signs Vital Signs: Vital Signs Temp Pulse Resp BP Pulse Ox O2 Del Method 03/15/22 13:31 36.2 C L 91 18 135/72 99 03/15/22 08:00 Room Air 03/15/22 05:04 36.7 C 90 18 126/76 98 03/14/22 20:00 Room Air 03/14/22 19:46 36.6 C 87 18 125/74 97 Intake/Output Intake/Output: Intake & Output 03/12/22 03/13/22 03/14/22 03/15/22 23:59 23:59 23:59 23:59 Intake Total 1999 3470 3790 Output Total 1 9542 700 Balance 1998 7777 3099 Meds/Results Medications: Active Medications Generic Name Dose Route Start Last Admin Trade Name Freq PRN Reason Stop Dose Admin Albuterol 1 puff 03/13/22 22:57 Albuterol Sulfate (*Sp) Aerosol 1 Puff INHALATION Q4-6H PRN shortness of breath or wheezing Azelastine HCl 1 spray 03/13/22 23:00 03/15/22 08:49 Azelastine Hcl Nasal 0.1% 137 Mcg/Spr 30 Ml Btl NASAL 1 spray Q12HR JARRETT Administration Chlordiazepoxide HCl 50 mg 03/14/22 01:54 Chlordiazepoxide (*Crx) 25 Mg Capsule PO Q6HR PRN Alcohol Withdrawal Cyanocobalamin 1,000 mcg 03/14/22 09:00 03/15/22 08:50 Cyanocobalamin 1,000 Mcg Ta
--- NOTE | 2022-03-15 13:52 | PM.PNNEP ---
Progress Note: A&P Assessment and Plan (1) Acute kidney injury: Code(s): N17.9 - Acute kidney failure, unspecified Status: Acute Assessment and Plan: peak creatinine at 4.2mg/dl likely secondary to volume depletion and hypotension evaluation to date: renal ultrasound with normal right kidney CKP normal urine electrolytes non-prerenal (may be misleading since he received significant IVF resuscitation before these were done) creatinine improving with IVFs would contiue IVFs for now/overnight and then wean off tomorrow (2) Chronic kidney disease, stage 3a: Code(s): N18.31 - Chronic kidney disease, stage 3a Status: Acute Assessment and Plan: baseline creatinine runs ~ 1.5mg/dl at baseline due to hypertension, vascular disease, and unilateral renal agenesis (3) Diarrhea: Code(s): R19.7 - Diarrhea, unspecified Status: Acute Assessment and Plan: diarrhea seems to be doing better on metronidazole stool studies pending (4) Essential hypertension: Code(s): I10 - Essential (primary) hypertension Status: Acute Assessment and Plan: BP doing better BP medications on hold sine admission follow trend of hemodynamics Discussed case with Dr. Garcia along with patient and his at bedside (> 20 minutes) regarding the above issues and plan of care as outlined. Will continue to follow. Subjective Date/time seen: 03/15/22 13:52 Chart reviewed - assuming care from Dr. Chisholm; transferred out of ICU; overall, seems to be doing reasonably well; anxious for discharge but is aware that renal function still not back to baseline; at bedside and we discussed the case/situation. Exam Narrative: General: WD/WN male in NAD Heart: normal S1 and S2; no rub Lungs: clear to auscultation Abdomen: soft, nontender, nondistended, positive bowel sounds Extremities: no cyanosis or clubbing; no edema Skin: warm and dry Objective Data Vital Signs Vital Signs: Vital Signs Temp Pulse Resp BP Pulse Ox O2 Del Method 03/15/22 13:31 36.2 C L 91 18 135/72 99 03/15/22 08:00 Room Air 03/15/22 05:04 36.7 C 90 18 126/76 98 03/14/22 20:00 Room Air 03/14/22 19:46 36.6 C 87 18 125/74 97 Intake/Output Intake/Output: Intake & Output 03/12/22 03/13/22 03/14/22 03/15/22 23:59 23:59 23:59 23:59 Intake Total 1999 5569 9656 Output Total 1 9976 804 Balance 1998 6137 5513 Meds/Results Medications: Active Medications Generic Name Dose Route Start Last Admin Trade Name Freq PRN Reason Stop Dose Admin Albuterol 1 puff 03/13/22 22:57 Albuterol Sulfate (*Sp) Aerosol 1 Puff INHALATION Q4-6H PRN shortness of breath or wheezing Azelastine HCl 1 spray 03/13/22 23:00 03/15/22 08:49 Azelastine Hcl Nasal 0.1% 137 Mcg/Spr 30 Ml Btl NASAL 1 spray Q12HR JARRETT Administration Chlordiazepoxide HCl 50 mg 03/14/22 01:54 Chlordiazepoxide (*Crx) 25 Mg Capsule PO Q6HR PRN Alcohol Withdrawal Cyanocobalamin 1,000 mcg 03/14/22 09:00 03/15/22 08:50 Cyanocobalamin 1,000 Mcg Tablet PO 1,000 mcg BID JARRETT Administration Escitalopram Oxalate 10 mg 03/14/22 09:00 03/15/22 08:50 Escitalopram Oxalate 10 Mg Tablet PO 10 mg DAILY JARRETT Administration Sodium Bicarbonate 150 meq/ 1,100 mls @ 100 mls/hr 03/13/22 17:50 03/15/22 10:11 Dextrose IV CONT 100 mls/hr .Q11H JARRETT Administration Metronidazole 500 mg in 100 mls @ 100 mls/hr 03/14/22 00:00 03/15/22 13:40 Flagyl 500 Mg/Iso Soln 100 Ml IVPB Infused Q6H JARRETT Infusion Ceftriaxone Sodium/Dextrose 1 gm in 50 mls @ 100 mls/hr 03/13/22 23:00 03/15/22 00:05 Rocephin 1 Gm/D5w 50 Ml IVPB Infused Q24H JARRETT Infusion Montelukast Sodium 10 mg 03/13/22 23:00 03/14/22 20:18 Montelukast Sodium 10 Mg Tablet PO 10 mg HS JARRETT Administration Multivitamins/Minerals 1 tablet 03/14/22 09:00
[2022-03-15] MEDS: MAGNESIUM SULF 2 GM/WATER 50ML 2 GM/50 ML BAG IVPB (14:09)
--- NOTE | 2022-03-15 16:59 | PM.IMPN ---
Progress Note: A&P Assessment and Plan (1) Acute hypotension: Code(s): I95.9 - Hypotension, unspecified Status: Acute Assessment and Plan: Sepsis with hypotension, lactic acidosis, acute kidney injury, lactic acidosis -most likely related to diarrhea, hypovolemia/dehydration -stool samples have been sent for culture -will send stool for norovirus as patient has been on the [facility] cruise for 3 weeks -patient has been adequately fluid-resuscitated, blood pressures have been stable -continue maintenance IV fluids -patient has not required any pressors 03/14/2022 interval history: patient presented to emergency depart with weakness and lightheadedness with BUN 94 and creatinine 4.2 patient was severely dehydrated secondary to poor p.o. intake heat exhaustion initially patient was admitted in ICU suspect patient may need pressor, however patient responded well to IV fluid patient was aggressively hydrated his clinical symptoms are improved and his BUN and creatinine has trended down 81/2.9, upon arrival patient potassium was elevated most likely secondary to dehydration and hemoconcentration patient was hydrated and was given Lokelma today patient potassium is 4.5, will continue to monitor patient will have a PT OT evaluate the patient patient will benefit with rehab. 03/15/2022 interval history: patient presented to emergency depart with weakness and lightheadedness with BUN 94 and creatinine 4.2 patient was severely dehydrated secondary to poor p.o. intake heat exhaustion initially patient was admitted in ICU suspect patient may need pressor, however patient responded well to IV fluid patient was aggressively hydrated his clinical symptoms have improved and his BUN and creatinine has trended down today to 71/2.20, discuss with Dr. Rahman recommended to continue to hydrate the patient as his creatinine above his baseline, upon arrival patient potassium was elevated most likely secondary to dehydration and hemoconcentration patient was hydrated and was given Lokelma today patient potassium is 4.5, patient also complained of dirrhea upon arrival, no BM today stool culture no growth so far, will continue to monitor patient will have a PT OT evaluate the patient patient will benefit with rehab. (2) Acute kidney injury: Code(s): N17.9 - Acute kidney failure, unspecified Status: Acute Assessment and Plan: Acute kidney injury most likely related to diarrhea, hypovolemia, dehydration -continue sodium bicarb IV fluids as patient is acidotic, will decrease rate to 100 mL/hour as patient also adequately taking oral diet and fluids -creatinine is improving -CK levels within normal limits -due to monitor urine output, renal function and electrolytes -appreciate Nephrology evaluation and recommendations (3) Acute dehydration: Code(s): E86.0 - Dehydration Status: Acute Assessment and Plan: Continue IV fluids (4) Diarrhea: Code(s): R19.7 - Diarrhea, unspecified Status: Acute Assessment and Plan: Diarrhea has improved, -was stool cultures and stool for norovirus has been ordered Continue Flagyl and ceftriaxone (03/13) (5) Chronic kidney disease, stage 3a: Code(s): N18.31 - Chronic kidney disease, stage 3a Status: Acute Assessment and Plan: Patient has history of chronic kidney disease stage 3, nephrology following the patient (6) Essential hypertension: Code(s): I10 - Essential (primary) hypertension Status: Acute Assessment and Plan: Hold antihypertensives for now as patient was hypotensive the ER (7) Unspecified asthma, uncomplicated: Qualifiers: Asthma severity: mild Asthma persistence: intermittent Qualified Code(s): J45.20 - Mild intermittent asthma, uncomplicated Code(s): J45.909 - Unspecified asthma, uncomplicated Status: Acute Assessment and Plan: Continue bronchodilators (8) Hyperlipidemi
[2022-03-15] MEDS: MONTELUKAST SODIUM 10 MG TABLET PO (20:39)
[2022-03-15 22:00] VITALS: BP 148/81; PULSE 76; RESP 18; TEMP 36.1; O2SAT 99
--- NOTE | 2022-03-15 23:10 | PCRCNOTE ---
Per pt he going to refuse CPAP tonight. RN informed
[2022-03-16] MEDS: metroNIDAZOLE 500 MG/ISO 100ML 500 MG/100 ML BAG 100 MG IVPB (00:08)
[2022-03-16 06:00] VITALS: BP 135/65; PULSE 70; RESP 18; TEMP 36; O2SAT 96
[2022-03-16 07:27] LABS: Albumin Level 3.6 g/dL (3.5-5.1); Blood Urea Nitrogen 53 mg/dL (9-20); Calcium 8.6 mg/dL (8.4-10.2); Carbon Dioxide > 40 mmol/L (22-30); Chloride 93 mmol/L (98-107); Estimated CRCL calculation 48 ml/min; Estimated Glomerular Filt Rate 40; Glucose 118 mg/dL (65-110); Phosphorus 3.2 mg/dL (2.5-4.5); Potassium 4.3 mmol/L (3.4-5.0); Sodium 137 mmol/L (137-145)
[2022-03-16] MEDS: OPTI-GEN TAB 1 TABLET PO (08:15)
[2022-03-16] MEDS: CYANOCOBALAMIN 1,000 MCG TABLET 1000 MCG PO (08:15)
[2022-03-16] MEDS: ESCITALOPRAM OXALATE 10 MG TABLET PO (08:15)
[2022-03-16] MEDS: AZELASTINE HCL NASAL 0.1% 137 MCG/SPR 30 ML BTL 1 SPRAY NASAL (08:15)
--- NOTE | 2022-03-16 11:04 | P.PNNP_ITS ---
Progress Note: A&P Assessment and Plan (1) Acute kidney injury: Code(s): N17.9 - Acute kidney failure, unspecified Status: Acute Assessment and Plan: * peak creatinine at 4.2mg/dl * likely secondary to volume depletion and hypotension * evaluation to date: * renal ultrasound with normal right kidney * CKP normal * urine electrolytes non-prerenal (may be misleading since he received significant IVF resuscitation before these were done) * creatinine improving with IVFs - off at this time (2) Chronic kidney disease, stage 3a: Code(s): N18.31 - Chronic kidney disease, stage 3a Status: Acute Assessment and Plan: * baseline creatinine runs ~ 1.5mg/dl at baseline * due to hypertension, vascular disease, and unilateral renal agenesis (3) Diarrhea: Code(s): R19.7 - Diarrhea, unspecified Status: Acute Assessment and Plan: * diarrhea seems to be doing better * on metronidazole * stool studies pending (4) Essential hypertension: Code(s): I10 - Essential (primary) hypertension Status: Acute Assessment and Plan: * BP doing better * BP medications on hold sine admission * follow trend of hemodynamics Would not be opposed to discharge from renal perspective - he can follow-up with Dr. Chisholm in clinic for management of his chronic kidney disease. Will continue to follow. Subjective Date/time seen: 03/16/22 11:04 Doing quite well this morning; no issues/events overnight or earlier this AM; renal function continues to improve with IVF resuscitation; no apparent distress voiced at this time; hoping for discharge today if all physicians are agreeable. Exam Narrative: General: WD/WN male in NAD Heart: normal S1 and S2; no rub Lungs: clear to auscultation Abdomen: soft, nontender, nondistended, positive bowel sounds Extremities: no cyanosis or clubbing; no edema Skin: warm and intact Objective Data Vital Signs Vital Signs: Vital Signs Temp Pulse Resp BP Pulse Ox O2 Del Method 03/16/22 08:10 Room Air 03/16/22 06:00 36.0 C L 70 18 135/65 96 03/15/22 22:00 36.1 C L 76 18 148/81 H 99 03/15/22 20:00 Room Air 03/15/22 13:31 36.2 C L 91 18 135/72 99 Intake/Output Intake/Output: Intake & Output 08/20/22 08/21/22 08/22/22 08/23/22 23:59 23:59 23:59 23:59 Intake Total 1999 5662 1901 1208 Output Total 7698 1300 Balance 1998 5356 8299 1204 Meds/Results Medications: Active Medications Generic Name Dose Route Start Last Admin Trade Name Freq PRN Reason Stop Dose Admin Albuterol 1 puff 03/13/22 22:57 Albuterol Sulfate (*Sp) Aerosol 1 Puff INHALATION Q4-6H PRN shortness of breath or wheezing Azelastine HCl 1 spray 03/13/22 23:00 03/16/22 08:15 Azelastine Hcl Nasal 0.1% 137 Mcg/Spr 30 Ml Btl NASAL 1 spray Q12HR JARRETT Administration Chlordiazepoxide HCl 50 mg 03/14/22 01:54 Chlordiazepoxide (*Crx) 25 Mg Capsule PO Q6HR PRN Alcohol Withdrawal Cyanocobalamin 1,000 mcg 03/14/22 09:00 03/16/22 08:15 Cyanocobalamin 1,000 Mcg Tablet PO 1,000 mcg BID JARRETT Admin
--- NOTE | 2022-03-16 11:04 | PM.PNNEP ---
Progress Note: A&P Assessment and Plan (1) Acute kidney injury: Code(s): N17.9 - Acute kidney failure, unspecified Status: Acute Assessment and Plan: peak creatinine at 4.2mg/dl likely secondary to volume depletion and hypotension evaluation to date: renal ultrasound with normal right kidney CKP normal urine electrolytes non-prerenal (may be misleading since he received significant IVF resuscitation before these were done) creatinine improving with IVFs - off at this time (2) Chronic kidney disease, stage 3a: Code(s): N18.31 - Chronic kidney disease, stage 3a Status: Acute Assessment and Plan: baseline creatinine runs ~ 1.5mg/dl at baseline due to hypertension, vascular disease, and unilateral renal agenesis (3) Diarrhea: Code(s): R19.7 - Diarrhea, unspecified Status: Acute Assessment and Plan: diarrhea seems to be doing better on metronidazole stool studies pending (4) Essential hypertension: Code(s): I10 - Essential (primary) hypertension Status: Acute Assessment and Plan: BP doing better BP medications on hold sine admission follow trend of hemodynamics Would not be opposed to discharge from renal perspective - he can follow-up with Dr. Chisholm in clinic for management of his chronic kidney disease. Will continue to follow. Subjective Date/time seen: 03/16/22 11:04 Doing quite well this morning; no issues/events overnight or earlier this AM; renal function continues to improve with IVF resuscitation; no apparent distress voiced at this time; hoping for discharge today if all physicians are agreeable. Exam Narrative: General: WD/WN male in NAD Heart: normal S1 and S2; no rub Lungs: clear to auscultation Abdomen: soft, nontender, nondistended, positive bowel sounds Extremities: no cyanosis or clubbing; no edema Skin: warm and intact Objective Data Vital Signs Vital Signs: Vital Signs Temp Pulse Resp BP Pulse Ox O2 Del Method 03/16/22 08:10 Room Air 03/16/22 06:00 36.0 C L 70 18 135/65 96 03/15/22 22:00 36.1 C L 76 18 148/81 H 99 03/15/22 20:00 Room Air 03/15/22 13:31 36.2 C L 91 18 135/72 99 Intake/Output Intake/Output: Intake & Output 03/13/22 03/14/22 03/15/22 08/23/22 23:59 23:59 23:59 23:59 Intake Total 1999 6283 8929 1207 Output Total 1 4006 3496 Balance 1998 6658 1535 2529 Meds/Results Medications: Active Medications Generic Name Dose Route Start Last Admin Trade Name Freq PRN Reason Stop Dose Admin Albuterol 1 puff 03/13/22 22:57 Albuterol Sulfate (*Sp) Aerosol 1 Puff INHALATION Q4-6H PRN shortness of breath or wheezing Azelastine HCl 1 spray 03/13/22 23:00 03/16/22 08:15 Azelastine Hcl Nasal 0.1% 137 Mcg/Spr 30 Ml Btl NASAL 1 spray Q12HR JARRETT Administration Chlordiazepoxide HCl 50 mg 03/14/22 01:54 Chlordiazepoxide (*Crx) 25 Mg Capsule PO Q6HR PRN Alcohol Withdrawal Cyanocobalamin 1,000 mcg 03/14/22 09:00 03/16/22 08:15 Cyanocobalamin 1,000 Mcg Tablet PO 1,000 mcg BID JARRETT Administration Escitalopram Oxalate 10 mg 03/14/22 09:00 03/16/22 08:15 Escitalopram Oxalate 10 Mg Tablet PO 10 mg DAILY JARRETT Administration Metronidazole 500 mg in 100 mls @ 100 mls/hr 03/14/22 00:00 03/16/22 08:19 Flagyl 500 Mg/Iso Soln 100 Ml IVPB Not Given Q6H JARRETT Ceftriaxone Sodium/Dextrose 1 gm in 50 mls @ 100 mls/hr 03/13/22 23:00 03/15/22 23:08 Rocephin 1 Gm/D5w 50 Ml IVPB Infused Q24H JARRETT Infusion Montelukast Sodium 10 mg 03/13/22 23:00 03/15/22 20:39 Montelukast Sodium 10 Mg Tablet PO 10 mg HS JARRETT Administration Multivitamins/Minerals 1 tablet 03/14/22 09:00 03/16/22 08:15 Opti-Gen Tab PO 1 tablet DAILY JARRETT Administration Fluticasone/Salmeterol 2 puff 03/13/22 23:04 Fluticasone/Salmeterol 115-21 Mcg Inhaler 1 Puff INHALATION Q1
--- NOTE | 2022-03-16 11:28 | PM.DS ---
DS: Admitting Diagnosis Discharge Date 03/16/2023 Admitting Diagnosis ?Weakness with low blood pressure DS: Discharge Diagnosis Discharge Diagnosis (1) Acute hypotension: Code(s): I95.9 - Hypotension, unspecified Status: Acute Assessment and Plan: Sepsis with hypotension, lactic acidosis, acute kidney injury, lactic acidosis -most likely related to diarrhea, hypovolemia/dehydration -stool samples have been sent for culture -will send stool for norovirus as patient has been on the [facility] cruise for 3 weeks -patient has been adequately fluid-resuscitated, blood pressures have been stable -continue maintenance IV fluids -patient has not required any pressors 03/14/2022 interval history: patient presented to emergency depart with weakness and lightheadedness with BUN 94 and creatinine 4.2 patient was severely dehydrated secondary to poor p.o. intake heat exhaustion initially patient was admitted in ICU suspect patient may need pressor, however patient responded well to IV fluid patient was aggressively hydrated his clinical symptoms are improved and his BUN and creatinine has trended down 81/2.9, upon arrival patient potassium was elevated most likely secondary to dehydration and hemoconcentration patient was hydrated and was given Lokelma today patient potassium is 4.5, will continue to monitor patient will have a PT OT evaluate the patient patient will benefit with rehab. 03/15/2022 interval history: patient presented to emergency depart with weakness and lightheadedness with BUN 94 and creatinine 4.2 patient was severely dehydrated secondary to poor p.o. intake heat exhaustion initially patient was admitted in ICU suspect patient may need pressor, however patient responded well to IV fluid patient was aggressively hydrated his clinical symptoms have improved and his BUN and creatinine has trended down today to 71/2.20, discuss with Dr. Rahman recommended to continue to hydrate the patient as his creatinine above his baseline, upon arrival patient potassium was elevated most likely secondary to dehydration and hemoconcentration patient was hydrated and was given Lokelma today patient potassium is 4.5, patient also complained of dirrhea upon arrival, no BM today stool culture no growth so far, will continue to monitor patient will have a PT OT evaluate the patient patient will benefit with rehab. (2) Acute kidney injury: Code(s): N17.9 - Acute kidney failure, unspecified Status: Acute Assessment and Plan: Acute kidney injury most likely related to diarrhea, hypovolemia, dehydration -continue sodium bicarb IV fluids as patient is acidotic, will decrease rate to 100 mL/hour as patient also adequately taking oral diet and fluids -creatinine is improving -CK levels within normal limits -due to monitor urine output, renal function and electrolytes -appreciate Nephrology evaluation and recommendations (3) Acute dehydration: Code(s): E86.0 - Dehydration Status: Acute Assessment and Plan: Continue IV fluids (4) Diarrhea: Code(s): R19.7 - Diarrhea, unspecified Status: Acute Assessment and Plan: Diarrhea has improved, -was stool cultures and stool for norovirus has been ordered Continue Flagyl and ceftriaxone (03/13) (5) Chronic kidney disease, stage 3a: Code(s): N18.31 - Chronic kidney disease, stage 3a Status: Acute Assessment and Plan: Patient has history of chronic kidney disease stage 3, nephrology following the patient (6) Essential hypertension: Code(s): I10 - Essential (primary) hypertension Status: Acute Assessment and Plan: Hold antihypertensives for now as patient was hypotensive the ER (7) Unspecified asthma, uncomplicated: Qualifiers: Asthma severity: mild Asthma persistence: intermittent Qualified Code(s): J45.20 - Mild intermittent asthma, uncomplicated Code(s): J45.909 - Unspecified
[2022-03-16 15:13] LABS: Osmolality, Urine 371 mOsm/kg (50-1200)
[2022-03-16 16:35] LABS: Anti Glomerular Basement Memb <1.0 AI (<1.0)
[2022-03-16 21:56] LABS: Albumin 3.1 g/dL (3.8-4.8); Alpha 1 Globulin 0.3 g/dL (0.2-0.3); Alpha 2 Globulin 0.7 g/dL (0.5-0.9); Beta 1 Globulin 0.4 g/dL (0.4-0.6); Protein, Total 5.9 g/dL (6.1-8.1)
[2022-03-17 13:14] LABS: Complement Total CH50 >60 U/mL (31-60)
[2022-03-17 20:01] LABS: Anti Streptolysin O Screen 70 IU/mL (<200)
[2022-03-18 14:10] LABS: ANCA Screen Negative (Negative)
[2022-03-18 15:35] LABS: Chloride Rand Ur 64 mmol/L (32-290); Chloride/Creatinine Rand Ur 73 (23-275); Creatinine Random Urine 88 mg/dL (20-320)
[2022-03-18 17:06] LABS: Norovirus RNA PCR, Stool NOT DETECTED
[2022-03-19 04:27] LABS: Total Protein/Creatinine Ratio 207 mg/g creat (22-128)
[2022-03-19 21:46] LABS: SM Antibody <1.0; SM/RNP Antibody <1.0
[2022-03-20 09:38] LABS: Cryoglobulin, QL Negative (Negative)
[2022-03-22 08:03] LABS: Strep DNASE B Antibody <95
== END 2022-03-16 12:10 | disposition home or self-care (01) | DRG 683 ==
LOC: ANHED 19:23 → ANHICU 19:43 → ANH3MEDSUR 03-14 13:06
PROVIDERS: Emergency Medicine; Internal Medicine; Internal Medicine Nephrology; Nurse Practitioner; Admitting Provider Family Medicine; Emergency Provider Emergency Medicine; PCP Family Medicine; Visit Provider Family Medicine
DX: N17.9 Acute kidney failure, unspecified (principal); Q60.0 Renal agenesis, unilateral; C43.9 Malignant melanoma of skin, unspecified; I12.9 Hypertensive chronic kidney disease with stage 1 through stage 4 chronic kidney disease, or unspecified chronic kidney disease; N18.31 Chronic kidney disease, stage 3a; R19.7 Diarrhea, unspecified; E86.0 Dehydration; E86.1 Hypovolemia; I95.9 Hypotension, unspecified; G47.33 Obstructive sleep apnea (adult) (pediatric); J45.20 Mild intermittent asthma, uncomplicated; E78.5 Hyperlipidemia, unspecified; F32.A Depression, unspecified; Z79.899 Other long term (current) drug therapy; Z98.49 Cataract extraction status, unspecified eye; Z99.89 Dependence on other enabling machines and devices
CPT/HCPCS: 36415; 36556; 71045; 76775; 80048; 80053; 80069; 80076; 81001; 82274; 82436; 82550; 82570; 82595; 83520; 83605; 83615; 83735; 83930; 83935; 84100; 84133; 84155; 84156; 84165; 84166; 84300; 84439; 84443; 84480; 85025; 85055; 85652; 85999; 86036; 86038; 86060; 86140; 86160; 86162; 86215; 86225; 86235; 86334; 86703; 86705; 86706; 86803; 87040; 87045; 87177; 87209; 87269; 87272; 87340; 87427; 87798; 89055; 93005; 94640; 96360; 99285; A9270; C1751; G0432; J0696; J1815; J3475; J7070; J7120

== ENCOUNTER 2022-04-02 08:04 | Outpatient (CLI) | payer MEDICARE, SELFPAY ==
[2022-04-02 08:29] LABS: Basophils Percent Auto 0.6 % (0.2-1.2); Eosinophils Absolute Auto 0.2 K/mm3 (0-0.3); Eosinophils Percent Auto 3.9 % (0-4.4); Hematocrit 30.2 % (42.0-52.0); Immature Granulocyte Absolute 0.02 K/mm3 (0.00-0.031); Immature Granulocyte Percent A 0.4 % (0-0.5); Lymphocytes Absolute Auto 0.79 K/mm3 (0.9-3.2); Lymphocytes Percent Auto 15.2 % (18.3-44.2); Mean Corpuscular HGB Conc 33.1 g/dl (32-36); Mean Corpuscular Hemoglobin 36.2 pg (26-34); Mean Corpuscular Volume 109.4 fl (80-100); Mean Platelet Volume 9.7 fl (7.4-10.4); Monocytes Absolute Auto 0.5 K/mm3 (0.1-0.6); Monocytes Percent Auto 8.9 % (2.6-8.5); Neutrophils Absolute Auto 3.7 K/mm3 (1.3-6.7); Platelet Count Result 124 k/mm3 (150-375); Red Blood Count 2.76 M/mm3 (4.6-6.20); Red Cell Distribution Width 12.7 % (11.5-14.5); White Blood Count 5.2 K/mm3 (4.5-10.0)
[2022-04-02 13:16] LABS: Iron 73 ug/dL (49-181)
[2022-04-02 13:25] LABS: Alanine Aminotransferase 49 U/L (6-50); Albumin Level 3.9 g/dL (3.5-5.1); Alkaline Phosphatase 84 U/L (38-126); Anion Gap 8 mmol/L (8-16); Aspartate Amino Transferase 45 U/L (17-59); Bilirubin,Total 0.4 mg/dL (0.2-1.3); Blood Urea Nitrogen 29 mg/dL (9-20); Calcium 9.8 mg/dL (8.4-10.2); Carbon Dioxide 23 mmol/L (22-30); Chloride 107 mmol/L (98-107); Estimated Glomerular Filt Rate 54; Glucose 111 mg/dL (65-110); Potassium 4.6 mmol/L (3.4-5.0); Sodium 138 mmol/L (137-145)
[2022-04-02 13:34] LABS: Percent Iron Saturation 21 % (20-50)
[2022-04-02 14:26] LABS: Folic Acid 8.7 ng/mL (2.76->20)
== END 2022-04-02 08:05 | disposition home or self-care (01) ==
LOC: ANHLAB 08:05
PROVIDERS: PCP Family Medicine; Visit Provider Internal Medicine Hematology & Oncology
DX: D53.9 Nutritional anemia, unspecified (principal)
CPT/HCPCS: 36415; 80053; 82607; 82728; 82746; 83540; 83550; 85025

== ENCOUNTER 2022-04-14 14:58 | Outpatient (CLI) | payer MEDICARE, SELFPAY ==
[2022-04-14 16:35] LABS: Alanine Aminotransferase 44 U/L (6-50); Albumin Level 4.1 g/dL (3.5-5.1); Alkaline Phosphatase 81 U/L (38-126); Anion Gap 10 mmol/L (8-16); Aspartate Amino Transferase 41 U/L (17-59); Bilirubin,Total 0.4 mg/dL (0.2-1.3); Blood Urea Nitrogen 22 mg/dL (9-20); Calcium 9.4 mg/dL (8.4-10.2); Carbon Dioxide 24 mmol/L (22-30); Chloride 104 mmol/L (98-107); Estimated Glomerular Filt Rate 60; Glucose 104 mg/dL (65-110); Potassium 4.6 mmol/L (3.4-5.0); Sodium 138 mmol/L (137-145)
== END 2022-04-14 14:59 | disposition home or self-care (01) ==
LOC: ANHLAB 14:59
PROVIDERS: PCP Family Medicine; Visit Provider Internal Medicine Hematology & Oncology
DX: D53.9 Nutritional anemia, unspecified (principal)
CPT/HCPCS: 36415; 80053; 82607

== ENCOUNTER 2022-07-13 10:28 | Outpatient (CLI) | payer MEDICARE, SELFPAY ==
[2022-07-13 10:51] LABS: Basophils Percent Auto 0.4 % (0.2-1.2); Eosinophils Absolute Auto 0.2 K/mm3 (0-0.3); Eosinophils Percent Auto 2.9 % (0-4.4); Hematocrit 31.5 % (42.0-52.0); Hemoglobin 10.7 g/dL (14.0-18.0); Immature Granulocyte Absolute 0.02 K/mm3 (0.00-0.031); Immature Granulocyte Percent A 0.4 % (0-0.5); Lymphocytes Absolute Auto 0.84 K/mm3 (0.9-3.2); Lymphocytes Percent Auto 16.4 % (18.3-44.2); Mean Corpuscular Hemoglobin 35.1 pg (26-34); Mean Corpuscular Volume 103.3 fl (80-100); Monocytes Absolute Auto 0.4 K/mm3 (0.1-0.6); Monocytes Percent Auto 8.2 % (2.6-8.5); Neutrophils Absolute Auto 3.7 K/mm3 (1.3-6.7); Neutrophils Percent Auto 71.7 % (45.5-73.1); Platelet Count Result 81 k/mm3 (150-375); Red Blood Count 3.05 M/mm3 (4.6-6.20); White Blood Count 5.1 K/mm3 (4.5-10.0)
[2022-07-13 17:35] LABS: Alanine Aminotransferase 26 U/L (6-50); Albumin Level 4.3 g/dL (3.5-5.1); Alkaline Phosphatase 77 U/L (38-126); Anion Gap 7 mmol/L (8-16); Aspartate Amino Transferase 29 U/L (17-59); Bilirubin,Total 0.6 mg/dL (0.2-1.3); Blood Urea Nitrogen 25 mg/dL (9-20); Calcium 9.3 mg/dL (8.4-10.2); Carbon Dioxide 29 mmol/L (22-30); Chloride 104 mmol/L (98-107); Estimated Glomerular Filt Rate 60; Glucose 94 mg/dL (65-110); Sodium 140 mmol/L (137-145)
[2022-07-13 18:20] LABS: Iron 80 ug/dL (49-181)
[2022-07-13 18:47] LABS: Percent Iron Saturation 20 % (20-50)
== END 2022-07-13 10:29 | disposition home or self-care (01) ==
LOC: ANHLAB 10:29
PROVIDERS: PCP Family Medicine; Visit Provider Internal Medicine Hematology & Oncology
DX: D53.9 Nutritional anemia, unspecified (principal)
CPT/HCPCS: 36415; 80053; 82607; 82728; 82746; 83540; 83550; 85025

== ENCOUNTER 2023-01-07 09:14 | Outpatient (CLI) | payer MEDICARE, SELFPAY ==
[2023-01-07 09:32] LABS: Basophils Percent Auto 0.4 % (0.2-1.2); Eosinophils Absolute Auto 0.2 K/mm3 (0-0.3); Eosinophils Percent Auto 4.2 % (0-4.4); Hematocrit 32.3 % (42.0-52.0); Hemoglobin 10.9 g/dL (14.0-18.0); Immature Granulocyte Absolute 0.02 K/mm3 (0.00-0.031); Immature Granulocyte Percent A 0.4 % (0-0.5); Lymphocytes Absolute Auto 0.74 K/mm3 (0.9-3.2); Lymphocytes Percent Auto 14.9 % (18.3-44.2); Mean Corpuscular HGB Conc 33.7 g/dl (32-36); Mean Corpuscular Hemoglobin 34.9 pg (26-34); Mean Corpuscular Volume 103.5 fl (80-100); Mean Platelet Volume 8.6 fl (7.4-10.4); Monocytes Absolute Auto 0.4 K/mm3 (0.1-0.6); Neutrophils Absolute Auto 3.6 K/mm3 (1.3-6.7); Neutrophils Percent Auto 72.1 % (45.5-73.1); Platelet Count Result 74 k/mm3 (150-375); Red Blood Count 3.12 M/mm3 (4.6-6.20)
[2023-01-07 10:35] LABS: Alanine Aminotransferase 36 U/L (6-50); Albumin Level 4.5 g/dL (3.5-5.1); Alkaline Phosphatase 74 U/L (38-126); Anion Gap 5 mmol/L (8-16); Aspartate Amino Transferase 34 U/L (17-59); Bilirubin,Total 0.6 mg/dL (0.2-1.3); Blood Urea Nitrogen 34 mg/dL (9-20); Calcium 9.2 mg/dL (8.4-10.2); Carbon Dioxide 27 mmol/L (22-30); Chloride 106 mmol/L (98-107); Estimated Glomerular Filt Rate 54; Glucose 102 mg/dL (65-110); Potassium 5.9 mmol/L (3.4-5.0); Sodium 138 mmol/L (137-145)
[2023-01-07 12:56] LABS: Folic Acid 13.5 ng/mL (2.76->20)
== END 2023-01-07 09:15 | disposition home or self-care (01) ==
PROVIDERS: PCP Family Medicine; Visit Provider Internal Medicine Hematology & Oncology
DX: D53.9 Nutritional anemia, unspecified (principal)
CPT/HCPCS: 36415; 80053; 82607; 82746; 85025

== ENCOUNTER 2023-02-01 02:33 | Day surgery (SDC) | payer MEDICARE, SELFPAY ==
[2023-01-19 14:44] VITALS: BMI 37.0
[2023-02-01 06:34] VITALS: BP 187/96; PULSE 82; RESP 18; TEMP 36.2; O2SAT 96
[2023-02-01] MEDS: LACTATED RINGERS 1,000 ML 150 ML IV CONT (06:36)
--- NOTE | 2023-02-01 06:50 | WPDANESEPPF ---
Anes - Initial Pre Proc Eval Procedure: Operation Date: 02/01/23 07:30 Proposed Procedures p Colonoscopy - Kali Archer MD Date/Time: 02/01/23 06:50 Surgeon: Kali Archer MD Pre Op Diagnosis: hx colon polyps Patient Data Age: 72 Gender: M Height: 1.83 m Weight: 122.7 kg Last Vital Signs Temp 36.2 C L 02/01/23 06:34 Pulse 82 02/01/23 06:34 Resp 18 02/01/23 06:34 BP 187/96 H 02/01/23 06:34 Pulse Ox 96 02/01/23 06:34 Allergies Allergy/AdvReac Type Severity Reaction Status Date / Time No Known Allergies Allergy Verified 02/01/23 06:08 Home Medications Medication Instructions Recorded Confirmed Type labetalol 100 mg tablet 100 mg PO BID 06/29/19 01/19/23 History terazosin 2 mg capsule 2 mg PO HS 06/29/19 01/19/23 History pxxcnjjmtzkl-efkkblji-xzsovp tablet 1 tablet PO DAILY 07/02/19 01/19/23 History cyanocobalamin (vitamin B-12) 1,000 mcg PO BID 05/06/21 01/19/23 History 1,000 mcg capsule fluticasone 250 mcg-salmeterol 50 2 inh inhalation BID PRN Shortness 03/13/22 01/19/23 History mcg/dose blistr powdr for Of Breath Or Wheezing inhalation (Wixela Inhub) allopurinol 300 mg tablet 300 mg PO DAILY #90 tabs 09/20/22 01/19/23 Rx lisinopril 40 mg tablet 40 mg PO DAILY #90 tabs 09/29/22 01/19/23 Rx atorvastatin 40 mg tablet See Rx Instructions .Route 10/14/22 01/19/23 Rx .COMPLEX #100 tabs montelukast 10 mg tablet See Rx Instructions .Route 10/14/22 01/19/23 Rx .COMPLEX #100 tabs multivit with min-folic 1 tablet PO DAILY 11/22/22 01/19/23 History acid-lutein 400 mcg-250 mcg chewable tablet (Centrum Silver) albuterol sulfate 90 mcg/actuation 1 - 2 puff inhalation Q4-6H PRN 11/24/22 01/19/23 Rx aerosol inhaler shortness of breath or wheezing #8.5 grams azelastine 137 mcg (0.1 %) nasal 1 spray intranasal Q12H 90 days 11/24/22 01/19/23 Rx spray aerosol #90 mL escitalopram oxalate 10 mg tablet See Rx Instructions .Route 01/10/23 01/19/23 Rx .COMPLEX #90 tabs Patient hx anesthesia problems: none Family hx anesthesia problems: none Results Review: All pre-operative results and documents have been reviewed as part of the pre-operative evaluation. [facility] Past Medical History Medical History Acute maxillary sinusitis, unspecified Acute pneumonitis Adult BMI 36.0-36.9 kg/sq m Asthma exacerbation, mild BMI 37.0-37.9, adult BMI 38.0-38.9,adult BMI 39.0-39.9,adult Cataract Chronic kidney disease, stage 3a Depression History of skin cancer in adulthood Hyperlipidemia Laceration Mild intermittent asthma without complication JENNIFER on CPAP PND (post-nasal drip) URI, acute Surgical History Surgical History H/O arthroscopy of left knee H/O cataract extraction H/O rectal polypectomy History of removal of pigmented skin lesion Family History Family History Father Hypertension Family history of lung cancer Patient's father is Mother Family history of Alzheimer's disease Sibling Patient's sister is in good health Grandparent Cerebrovascular accident, Onset Age: 64 Social History Social History Social History: the patient is and his is the durable power health care attorney for healthcare. The patient has 3 grown children. Lifelong nonsmoker. He drinks about 3 to 4 times a week maybe 2 drinks. No marijuana or illicit drugs. He is retired from being a claims executive. code status full code Smoking status: Never smoker Tobacco type: cigarettes Second hand tobacco smoke exposure: Yes Alcohol intake: current Drinks per week: 4 Alcohol use details: glass of wine occasionally Substance use: never Substance use type: does not use Lack of Transpo
--- NOTE | 2023-02-01 07:27 | PM.HPGS ---
History of Present Illness History of Present Illness Consent: Risks, benefits, and alternatives have been discussed and questions answered. Patient agrees to proceed with procedure. Chief complaint: hx colon polyps Narrative: Blayne Cisneros is a 72 year old male Presents for colonoscopy. Patient's current weight appetite and bowel movements are normal. Patient denies abdominal pain. He has had no bleeding. Patient has had several previous colonoscopies. These have revealed multiple colon polyps. Most recent colonoscopy 4 years ago in 2019 revealed multiple adenomatous colon polyps. Patient presents today for surveillance exam. Review of Systems Review of Systems: Review of systems noncontributory. [facility] Past Medical History Medical History Acute maxillary sinusitis, unspecified Acute pneumonitis Adult BMI 36.0-36.9 kg/sq m Asthma exacerbation, mild BMI 37.0-37.9, adult BMI 38.0-38.9,adult BMI 39.0-39.9,adult Cataract Chronic kidney disease, stage 3a Depression History of skin cancer in adulthood Hyperlipidemia Laceration Mild intermittent asthma without complication JENNIFER on CPAP PND (post-nasal drip) URI, acute Surgical History Surgical History H/O arthroscopy of left knee H/O cataract extraction H/O rectal polypectomy History of removal of pigmented skin lesion Family History Family History Father Hypertension Family history of lung cancer Patient's father is Mother Family history of Alzheimer's disease Sibling Patient's sister is in good health Grandparent Cerebrovascular accident, Onset Age: 64 Social History Social History Social History: the patient is and his is the durable power insurance defense attorney for healthcare. The patient has 3 grown children. Lifelong nonsmoker. He drinks about 3 to 4 times a week maybe 2 drinks. No marijuana or illicit drugs. He is retired from being a claims executive. code status full code Smoking status: Never smoker Tobacco type: cigarettes Second hand tobacco smoke exposure: Yes Alcohol intake: current Drinks per week: 4 Alcohol use details: glass of wine occasionally Substance use: never Substance use type: does not use Lack of Transportation: No Lack of Food: Never True Current Housing: I Have Housing Concerned About Future Housing: No Difficulty Paying Gas/Electric Bills: No Difficulty Paying for Meds: No Currently Unemployed: No Education: Bachelor's Degree Living arrangements: with family Occupation/Education: retired Additional occupation/education comments: claims executive Gender identity (if verbalized by the patient): Male Spiritual care concerns: No Meds Home Medications and Allergies Home Medications Medication Instructions Recorded Confirmed Type labetalol 100 mg tablet 100 mg PO BID 06/29/19 01/19/23 History terazosin 2 mg capsule 2 mg PO HS 06/29/19 01/19/23 History kqmgkhcrioix-gqgyddnk-tuulde tablet 1 tablet PO DAILY 07/02/19 01/19/23 History cyanocobalamin (vitamin B-12) 1,000 mcg PO BID 05/06/21 01/19/23 History 1,000 mcg capsule fluticasone 250 mcg-salmeterol 50 2 inh inhalation BID PRN Shortness 03/13/22 01/19/23 History mcg/dose blistr powdr for Of Breath Or Wheezing inhalation (Wixela Inhub) allopurinol 300 mg tablet 300 mg PO DAILY #90 tabs 09/20/22 01/19/23 Rx lisinopril 40 mg tablet 40 mg PO DAILY #90 tabs 09/29/22 01/19/23 Rx atorvastatin 40 mg tablet See Rx Instructions .Route 10/14/22 01/19/23 Rx .COMPLEX #100 tabs montelukast 10 mg tablet See Rx Instructions .Route 10/14/22 01/19/23 Rx .COMPLEX #100 tabs multivit with min-folic 1 tablet PO DAILY 11/22/22 01/19/23 Hi
[2023-02-01] MEDS: SIMETHICONE ORAL SUSPENSION 20 MG/0.3 ML 30 ML BOTTLE 0.6 ML IRRIGATION (07:40)
[2023-02-01 08:01] VITALS: BP 111/63; PULSE 67; RESP 19; O2SAT 93
[2023-02-01 08:11] VITALS: BP 125/64; PULSE 60; RESP 16; O2SAT 95
[2023-02-01 08:21] VITALS: BP 139/73; PULSE 60; RESP 16; O2SAT 94
== END 2023-02-01 08:31 | disposition home or self-care (01) ==
PROVIDERS: PCP Family Medicine; Visit Provider Internal Medicine Gastroenterology
PROC: 0DJD8ZZ Inspection of Lower Intestinal Tract, Via Natural or Artificial Opening Endoscopic (ICD-10-PCS; CPT 45378; principal; 2023-02-01 07:30)
DX: Z12.11 Encounter for screening for malignant neoplasm of colon (principal); D12.2 Benign neoplasm of ascending colon; D12.4 Benign neoplasm of descending colon; K64.8 Other hemorrhoids; K57.30 Diverticulosis of large intestine without perforation or abscess without bleeding; N18.30 Chronic kidney disease, stage 3 unspecified; E78.5 Hyperlipidemia, unspecified; J45.20 Mild intermittent asthma, uncomplicated; G47.33 Obstructive sleep apnea (adult) (pediatric); F32.A Depression, unspecified; Z79.51 Long term (current) use of inhaled steroids; E66.01 Morbid (severe) obesity due to excess calories; Z68.36 Body mass index [BMI] 36.0-36.9, adult
CPT/HCPCS: 45385; 88305; J2704; J7120

== ENCOUNTER 2023-04-11 08:59 | Observation (INO) | payer MEDICARE, SELFPAY ==
[2023-04-11] VITALS (49 sets, daily range): BP systolic 126–182; BP diastolic 57–90; PULSE 58–104; RESP 12–28; TEMP 36.4–37.1; O2SAT 93–100; BMI 38.5
--- NOTE | 2023-04-11 09:05 | ECG_ITS ---
Measurements Intervals [place] Rate: 59 P: 57 AK: 195 QRS: 11 QRSD: 104 T: 40 QT: 376 QTc: 374 Interpretive Statements SINUS BRADYCARDIA DELAYED PRECORDIAL R/S TRANSITION BASELINE ARTIFACT- III BORDERLINE ECG COMPARED TO ECG 03/13/2022 16:44:58 SINUS BRADYCARDIA NOW PRESENT Electronically Signed On 04-11-2023 9:29:27 CDT by Rg Morgan D.O.
[2023-04-11 09:32] LABS: Basophils Percent Auto 0.3 % (0.2-1.2); Eosinophils Absolute Auto 0.2 K/mm3 (0-0.3); Eosinophils Percent Auto 2.4 % (0-4.4); Hematocrit 29.6 % (42.0-52.0); Hemoglobin 9.7 g/dL (14.0-18.0); Immature Granulocyte Absolute 0.05 K/mm3 (0.00-0.031); Immature Granulocyte Percent A 0.8 % (0-0.5); Immature Platelet Fraction Pct 1.4 % (0.9-11.2); Lymphocytes Absolute Auto 0.77 K/mm3 (0.9-3.2); Lymphocytes Percent Auto 11.7 % (18.3-44.2); Mean Corpuscular HGB Conc 32.8 g/dl (32-36); Mean Corpuscular Hemoglobin 35.5 pg (26-34); Mean Corpuscular Volume 108.4 fl (80-100); Mean Platelet Volume 9.1 fl (7.4-10.4); Monocytes Absolute Auto 0.6 K/mm3 (0.1-0.6); Monocytes Percent Auto 8.5 % (2.6-8.5); Neutrophils Percent Auto 76.3 % (45.5-73.1); Platelet Count Result 122 k/mm3 (150-375); Red Blood Count 2.73 M/mm3 (4.6-6.20); Red Cell Distribution Width 13.4 % (11.5-14.5); White Blood Count 6.6 K/mm3 (4.5-10.0)
[2023-04-11 09:54] LABS: Alanine Aminotransferase 27 U/L (6-50); Albumin Level 4.2 g/dL (3.5-5.1); Alkaline Phosphatase 84 U/L (38-126); Anion Gap 9 mmol/L (8-16); Aspartate Amino Transferase 29 U/L (17-59); Bilirubin,Total 0.7 mg/dL (0.2-1.3); Blood Urea Nitrogen 36 mg/dL (9-20); Calcium 9.5 mg/dL (8.4-10.2); Carbon Dioxide 18 mmol/L (22-30); Chloride 110 mmol/L (98-107); Estimated CRCL calculation 61 ml/min; Estimated Glomerular Filt Rate 54; Glucose 107 mg/dL (65-110); Potassium 6.8 mmol/L (3.4-5.0); Sodium 137 mmol/L (137-145)
[2023-04-11 10:18] LABS: Magnesium 1.8 mg/dL (1.6-2.3); Phosphorus 3.8 mg/dL (2.5-4.5)
--- NOTE | 2023-04-11 10:25 | ED.RECABL ---
HPI - Recheck/Abnormal Lab/Rx General Chief Complaint: Recheck/Abnormal Lab/Rx <Neyda Jackson PA-C - Last Filed: 04/11/23 18:55> Stated Complaint: High potassium <Neyda Jackson PA-C - Last Filed: 04/11/23 18:55> Time Seen by Provider: 04/11/23 09:32 <Neyda Jackson PA-C - Last Filed: 04/11/23 18:55> History of Present Illness HPI narrative: 72-year-old male with a history of hypertension, hyperlipidemia, atrophic left kidney follows with Dr. Chisholm reports for evaluation for hyperkalemia. Patient states he had labs drawn 3 days ago in anticipation for an upcoming appointment with Dr. Chisholm tomorrow. States he received a phone call from Dr. Chisholm this morning advising him to go to the emergency department due to an elevated potassium. Of note, patient saw a urologist 2 weeks ago for a lump on his scrotum and was started on Bactrim for presumed infection. He states he took the antibiotic for approximately 8 days and discontinued it after developing generalized weakness after starting the Bactrim. States he followed up with the urologist 4 days ago who said that the lump had resolved. Patient made Dr. Chisholm aware that he was on Bactrim when Dr. Chisholm called about his potassium level, and advised him to come to the emergency department for further evaluation. Currently, the patient states he feels fine . He denies chest pain, palpitations, shortness of breath, syncope. He denies other new medications. He is currently taking lisinopril, however states he has not taken his medications today. He is not on dialysis. <Neyda Jackson PA-C - Last Filed: 04/11/23 18:55> Related Data Home Medications: Home Medications Medication Instructions Recorded Confirmed cyanocobalamin (vitamin B-12) 1,000 mcg PO BID 05/06/21 04/11/23 1,000 mcg capsule fluticasone 250 mcg-salmeterol 50 2 inh inhalation BID PRN Shortness 03/13/22 04/11/23 mcg/dose blistr powdr for Of Breath Or Wheezing inhalation (Wixela Inhub) multivit with min-folic 1 tablet PO DAILY 11/22/22 04/11/23 acid-lutein 400 mcg-250 mcg chewable tablet (Centrum Silver) atorvastatin 40 mg tablet 40 mg PO HS 04/11/23 04/11/23 escitalopram oxalate 10 mg tablet 10 mg PO DAILY 04/11/23 04/11/23 labetalol 200 mg tablet 200 mg PO Q12H 04/11/23 04/11/23 montelukast 10 mg tablet 10 mg PO HS 04/11/23 04/11/23 <Neyda Jackson PA-C - Last Filed: 04/11/23 18:55> Allergies/Adverse Reactions: Allergies Allergy/AdvReac Type Severity Reaction Status Date / Time No Known Allergies Allergy Verified 04/11/23 08:59 <Neyda Jackson PA-C - Last Filed: 04/11/23 18:55> Review of Systems Review of Systems: CONSTITUTIONAL: Denies fever, chills EYES: Denies visual changes, redness, or discharge. ENT: Denies rhinorrhea, congestion, sore throat, or otalgia. CARDIOVASCULAR: Denies chest pain, palpitations, or edema. RESPIRATORY: Denies cough or dyspnea. GASTROINTESTINAL: Denies abdominal pain, nausea, vomiting, or diarrhea. GENITOURINARY: Denies dysuria or hematuria. SKIN: Denies rash or itching. MUSCULOSKELETAL: Denies back pain, joint pain, or myalgia. NEUROLOGIC: Denies headache, numbness, dizziness, or weakness. PSYCHIATRIC: Denies anxiety or depression. <Neyda Jackson PA-C - Last Filed: 04/11/23 18:55> [facility] Past Medical History Medical History: Medical History Acute maxillary sinusitis, unspecified Acute pneumonitis Adult BMI 36.0-36.9 kg/sq m Asthma exacerbation, mild BMI 37.0-37.9, adult BMI 38.0-38.9,adult BMI 39.0-39.9,adult Cataract Chronic kidney disease, stage 3a Depression History of skin cancer in adulthood Hyperlipidemia Laceration Mild intermittent asthma without complication JENNIFER on CPAP PND (post-nasal drip) URI, acute <Neyda Jackson PA-C - Last Filed: 04/11/23 18:55> Surgical History Surgical History: Surgical
[2023-04-11] MEDS: DEXTROSE 50% 25 GM/50 ML SYRINGE IV PUSH ×3 (11:01→18:29)
[2023-04-11] MEDS: SODIUM ZIRCONIUM CYCLOSILICATE 10 GM POWD.PACK PO (11:01)
[2023-04-11] MEDS: CALCIUM GLUCONATE 1,000 MG/10 ML VIAL 2000 MG IV PUSH (11:01)
[2023-04-11] MEDS: SODIUM BICARBONATE 8.4% 50 MEQ/50 ML SYRINGE IV PUSH ×2 (11:01→18:32)
[2023-04-11] MEDS: INSULIN HUMAN REGULAR (*BKC) 100 UNITS/ML 10 UNITS IV PUSH ×2 (11:02→18:31)
[2023-04-11 11:47] LABS: Appearance Urine Clear (Clear); Bacteria Urine None Seen /hpf; Bilirubin Urine Negative (Negative); Blood Urine 1+ (Negative); Color Urine Yellow (Yellow); Glucose Urine UA Negative (Negative); Ketones Urine Negative (Negative); Leukocyte Esterase Ur Negative LEU/UL (Negative); Nitrate Urine Negative (Negative); Non Pathogenic Casts 0-2; Protein Urine 1+ mg/dL (Negative); RBC Urine 0-2 /hpf (0-2); Specific Grav Ur 1.017 (1.001-1.035); Squamous Epithelial Cell Urine None seen /hpf (Few); Urobilinogen Urine 0.2 mg/dL (<2.0); WBC Urine 0-5 /hpf
[2023-04-11 11:50] LABS: Add Urine Microscopic? YES
[2023-04-11 12:11] LABS: Anion Gap 8 mmol/L (8-16); Blood Urea Nitrogen 35 mg/dL (9-20); Calcium 10.2 mg/dL (8.4-10.2); Carbon Dioxide 19 mmol/L (22-30); Chloride 109 mmol/L (98-107); Estimated CRCL calculation 66 ml/min; Estimated Glomerular Filt Rate 59; Glucose 83 mg/dL (65-110); Potassium 6.3 mmol/L (3.4-5.0); Sodium 136 mmol/L (137-145)
[2023-04-11 12:36] LABS: Glucose Point of Care 53 mg/dl (65-105)
[2023-04-11 13:14] LABS: Glucose Point of Care 169 mg/dl (65-105)
[2023-04-11] MEDS: ALBUTEROL SULFATE NEB 2.5 MG/3 ML INH INHALATION (13:16)
[2023-04-11 16:25] LABS: Glucose Point of Care 100 mg/dl (65-105)
[2023-04-11 17:19] LABS: Anion Gap 6 mmol/L (8-16); Blood Urea Nitrogen 37 mg/dL (9-20); Calcium 10.1 mg/dL (8.4-10.2); Carbon Dioxide 21 mmol/L (22-30); Chloride 109 mmol/L (98-107); Estimated CRCL calculation 61 ml/min; Estimated Glomerular Filt Rate 54; Glucose 102 mg/dL (65-110); Potassium 6.8 mmol/L (3.4-5.0); Sodium 136 mmol/L (137-145)
--- NOTE | 2023-04-11 17:41 | ADMGEN ---
This patient, Blayne Cisneros, was admitted to IMU Room 201-01 @ 1725 Patient/family oriented to hospital policies and general routines including ID bracelet, bed and alarms, visiting hours, pain management, procedures, bathroom and other care routines, personal items, smoking policy, room service/diet, and visiting hours.denies any c/o pain. monitor SR 70's Information on how to activate the Rapid Response Team has been discussed. Patient/Family are encouraged to report perceived risks to care and to ask questions if they do not understand what they are told or what they should do.
[2023-04-11] MEDS: ALBUTEROL SULFATE NEB 2.5 MG/3 ML INH 10 MG INHALATION (18:07)
[2023-04-11 18:29] LABS: Glucose Point of Care 149 mg/dl (65-105)
[2023-04-11] MEDS: FUROSEMIDE INJ 40 MG/4 ML VIAL 20 MG IV PUSH (18:36)
[2023-04-11 20:44] LABS: Anion Gap 10 mmol/L (8-16); Blood Urea Nitrogen 39 mg/dL (9-20); Carbon Dioxide 21 mmol/L (22-30); Chloride 107 mmol/L (98-107); Estimated CRCL calculation 61 ml/min; Estimated Glomerular Filt Rate 54; Glucose 67 mg/dL (65-110); Potassium 5.4 mmol/L (3.4-5.0); Sodium 138 mmol/L (137-145)
--- NOTE | 2023-04-11 20:45 | PM.IMHP ---
H&P: HPI History of Present Illness Date/Time: 04/11/23 19:45 Chief Complaint: High potassium. Narrative: This is a 72-year-old male with history of chronic kidney disease stage 3, congenital solitary kidney, hypertension, benign prostatic hyperplasia, hyperlipidemia, and sleep apnea presented to the emergency department at the direction of Dr. Chisholm after he was found to have a high potassium on labs. The patient provides the following history. He had routine labs drawn 3 days ago in anticipation for an upcoming appoint with Dr. Chisholm tomorrow. He received a phone call today advising him to go to the emergency department as his potassium was reportedly 6.6. With further questioning the patient reports that he was started on Bactrim a couple of weeks ago for a lump that he found on his scrotum. He took that for about 8 days before discontinuing it as he developed generalized weakness which he thought was related to the drug. He has never had issues with high potassium. He is on lisinopril. He is not on potassium-sparing diuretics or potassium supplementation. Diet is unchanged. Potassium on arrival to the emergency department was 6.8 and he received appropriate treatment without much improvement, only down to 6.3. He received an additional albuterol treatment in addition to Kayexalate, sodium bicarbonate, and calcium chloride and his potassium is now down to 5.4. BUN and creatinine are stable. He is being admitted overnight to ensure that his potassium remains stable. At the time my evaluation he feels fine and has no complaints. Review of Systems Review of Systems: Twelve systems were reviewed and are negative except for as per HPI. [facility] Past Medical History Medical History (Updated 04/12/23 @ 16:43 by Roshni Richardson PA-C) Agenesis of left kidney Asthma exacerbation, mild Chronic kidney disease, stage 3a Depression Hyperlipidemia Malignant melanoma Mild intermittent asthma without complication JENNIFER on CPAP Surgical History Surgical History (Updated 04/12/23 @ 16:42 by Roshni Richardson PA-C) History of arthroscopy of left knee History of bilateral cataract extraction History of colonoscopy with polypectomy History of removal of pigmented skin lesion Family History Family History Father Hypertension Family history of lung cancer Patient's father is Mother Family history of Alzheimer's disease Sibling Patient's sister is in good health Grandparent Cerebrovascular accident, Onset Age: 64 Social History Social History (Updated 04/12/23 @ 16:44 by Roshni Richardson PA-C) Social History: Surrogate medical decision maker: Radha Cisneros, spouse. Code status: Full code. Smoking status: Never smoker Tobacco type: cigarettes Second hand tobacco smoke exposure: Yes Alcohol intake: current Drinks per week: 10 Alcohol use details: glass of wine occasionally Substance use: never Substance use type: does not use Lack of Transportation: No Lack of Food: Never True Current Housing: I Have Housing Concerned About Future Housing: No Difficulty Paying Gas/Electric Bills: No Difficulty Paying for Meds: No Currently Unemployed: No Education: Bachelor's Degree Difficulty w/ Childcare or Family Care: No Living arrangements: with family Additional living arrangements comments: . Lives with spouse in [place]. They have 3 grown children. Occupation/Education: retired Additional occupation/education comments: Claims executive. Spiritual care concerns: No Meds Home Medications and Allergies Home Medications Medication Instructions Recorded Confirmed Type cyanocobalamin (vitamin B-12) 1,000 mcg PO BID 05/06/21 04/11/23 History 1,000 mcg capsule fluticasone 250 mcg-salmeterol 50 2 inh inhalation BID PRN Shortness 03/13/22 04/11/23 History mcg/dose blistr powdr
[2023-04-11] MEDS: MONTELUKAST SODIUM 10 MG TABLET PO (22:18)
[2023-04-11] MEDS: LABETALOL HCL 100 MG TABLET 200 MG PO (22:18)
[2023-04-11] MEDS: TERAZOSIN HCL 1 MG CAPSULE 2 MG PO (22:18)
[2023-04-11] MEDS: ATORVASTATIN 40 MG TABLET PO (22:18)
[2023-04-12] VITALS (19 sets, daily range): BP systolic 125–149; BP diastolic 50–73; PULSE 65–84; RESP 16–18; TEMP 36.2–36.9; O2SAT 91–100
[2023-04-12 05:09] LABS: Hematocrit 27.2 % (42.0-52.0); Immature Platelet Fraction Pct 1.9 % (0.9-11.2); Mean Corpuscular HGB Conc 33.1 g/dl (32-36); Mean Corpuscular Hemoglobin 35.7 pg (26-34); Mean Corpuscular Volume 107.9 fl (80-100); Mean Platelet Volume 9.4 fl (7.4-10.4); Platelet Count Result 102 k/mm3 (150-375); Red Blood Count 2.52 M/mm3 (4.6-6.20); Red Cell Distribution Width 13.2 % (11.5-14.5); White Blood Count 5.7 K/mm3 (4.5-10.0)
[2023-04-12 05:21] LABS: Anion Gap 6 mmol/L (8-16); Blood Urea Nitrogen 37 mg/dL (9-20); Calcium 9.4 mg/dL (8.4-10.2); Carbon Dioxide 22 mmol/L (22-30); Chloride 107 mmol/L (98-107); Estimated CRCL calculation 61 ml/min; Estimated Glomerular Filt Rate 54; Glucose 103 mg/dL (65-110); Magnesium 1.6 mg/dL (1.6-2.3); Phosphorus 4.1 mg/dL (2.5-4.5); Potassium 5.6 mmol/L (3.4-5.0); Sodium 135 mmol/L (137-145)
[2023-04-12] MEDS: CYANOCOBALAMIN 1,000 MCG TABLET 1000 MCG PO ×2 (08:57→20:43)
[2023-04-12] MEDS: ESCITALOPRAM OXALATE 10 MG TABLET PO (08:57)
[2023-04-12] MEDS: LABETALOL HCL 100 MG TABLET 200 MG PO ×2 (08:58→20:43)
[2023-04-12] MEDS: SODIUM POLYSTYRENE SULFONONATE 15 GM/60 ML BTL PO (09:29)
--- NOTE | 2023-04-12 09:45 | PM.CNNEP ---
Assessment and Plan Assessment and plan (1) Hyperkalemia: Code(s): E87.5 - Hyperkalemia Status: Acute Assessment and Plan: K+ 6.8 in ER by recheck s/p aggressive medical management -- down to 5.4 EKG with T-wave elevation the lateral leads on admission - follow telemetery presumably secondary to Bactrim use + lisinopril off bactrim and holding lisinopril follow repeat K+ levels if continues to downtrend, would not be opposed to discharge later today if not tomorrow (2) Chronic kidney disease, stage 3a: Code(s): N18.31 - Chronic kidney disease, stage 3a Status: Chronic Assessment and Plan: baseline creatinine runs ~ 1.2 - 1.5mg/dl over the last couple of years due to hypertension, vascular disease, and unilateral renal agenesis (3) Essential hypertension: Code(s): I10 - Essential (primary) hypertension Status: Chronic Assessment and Plan: reasonable control at this time lisinopril on hold due to #1 follow trend of hemodynamics (4) Chronic anemia: Code(s): D64.9 - Anemia, unspecified Status: Chronic Assessment and Plan: chronic issue follows with Dr. Bynum (Hematology) I will continue to follow the patient with you while the patient remains hospitalized and make further recommendations as needed. Thank you for allowing me to participate in the care of this patient. History of Present Illness Reason for Consult Consult date: 04/12/23 Reason for consult: chronic renal failure and hyperkalemia Chief Complaint Chief complaint: Hyperkalemia History of Present Illness Narrative: The patient is a 72-year-old male with a past medical history as outlined below presented to [facility] Emergency Room at direction of his associate professor of church music, Dr. Chisholm, after outpatient labs revealed hyperkalemia. The patient had labs done about 3 days ago in anticipation of his appointment with Dr. Chisholm for management of his known chronic kidney disease and hypertension. He received a phone call earlier yesterday noting that his potassium level was quite elevated and he should go to the emergency room for further evaluation. Upon further questioning, the patient reports that he was on Bactrim for about 8 days for treatment of a presumed infection on his scrotal area. After 8 days of treatment, he stopped the medication on his own as it gave him symptoms of fatigue and generalized weakness. The patient himself has never had any issues or problems with hyperkalemia in the past despite his known history of mild renal insufficiency as well as the fact that he is on lisinopril. He is not on any other medications that would raise his potassium with regard to potassium supplements or potassium-sparing diuretics. His diet remains the same. In spite of the fact that he had a high potassium level, he does not seem to think he has had any symptoms or issues with it in general. Workup and evaluation emergency room demonstrated the patient to be hemodynamically stable and repeat labs confirmed his hyperkalemia with a potassium of 6.8 when outpatient labs apparently showed his potassium was 6.6. He received aggressive medical management in the form of Kayexalate, sodium bicarbonate, and IV calcium and his potassium level did come down to 6.3 with additional treatment in the form of albuterol and Lokelma and his potassium came down to 5.4. His renal function was stable. Given the significant hyperkalemia and the the resistance to initial medical management, he was admitted the hospital overnight for further monitoring. Renal consultation was requested due to his hyperkalemia in association with chronic kidney disease. The patient normally follows with Dr. 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 His renal functi
--- NOTE | 2023-04-12 14:08 | PM.DS ---
DS: Admitting Diagnosis Discharge Date 04/13/2023 Admitting Diagnosis Hyperkalemia DS: Discharge Diagnosis Discharge Diagnosis (1) Hyperkalemia: Code(s): E87.5 - Hyperkalemia Status: Acute DS: Summary Hospital Course Hospital Course: the patient had labs done about 3 days ago in anticipation of his appointment with Dr. Chisholm for management of his known chronic kidney disease and hypertension.? He received a phone call earlier yesterday noting that his potassium level was quite elevated and he should go to the emergency room for further evaluation.? Upon further questioning, the patient reports that he was on Bactrim for about 8 days for treatment of a presumed infection on his scrotal area.? he has history of mild renal insufficiency as well as the fact that he is on lisinopril.? Workup and evaluation emergency room demonstrated the patient to be hemodynamically stable and repeat labs confirmed his hyperkalemia with a potassium of 6.8 when outpatient labs apparently showed his potassium was 6.6.? He received aggressive medical management in the form of Kayexalate, sodium bicarbonate, and IV calcium and his potassium level did come down to 6.3 with additional treatment in the form of albuterol and Lokelma and his potassium came down to 5.4.? His renal function was stable.? Given the significant hyperkalemia and the the resistance to initial medical management, he was admitted the hospital overnight for further monitoring. he was given repeated doses of lokelma and K is donw to 4.7. he is being discharged home. Time Spent with Patient Time attestation: Total time spent providing and/or coordinating discharge services: DS: Data Data Completed and Pending Labs on day of discharge: Labs from last 24 hours 04/12/23 04/11/23 04/11/23 04:31 19:59 18:25 WBC 5.7 RBC 2.52 L Hgb 9.0 L Hct 27.2 L MCV 107.9 H MCH 35.7 H MCHC 33.1 RDW 13.2 Plt Count 102 L MPV 9.4 % Immature Plt Fraction 1.9 Sodium 135 L 138 Potassium 5.6 H 5.4 H Chloride 107 107 Carbon Dioxide 22 21 L Anion Gap 6 L 10 BUN 37 H 39 H Creatinine 1.30 1.30 Estim Creat Clear Calc 61 61 Estimated GFR 54 L 54 L Glucose 103 67 POC Capillary Glucose 149 H Calcium 9.4 10.0 Phosphorus 4.1 Magnesium 1.6 04/11/23 04/11/23 16:55 16:23 WBC RBC Hgb Hct MCV MCH MCHC RDW Plt Count MPV % Immature Plt Fraction Sodium 136 L Potassium 6.8 H* Chloride 109 H Carbon Dioxide 21 L Anion Gap 6 L BUN 37 H Creatinine 1.30 Estim Creat Clear Calc 61 Estimated GFR 54 L Glucose 102 POC Capillary Glucose 100 Calcium 10.1 Phosphorus Magnesium Discharge Plan Discharge Consulting providers: Alvin Sarmiento; Neyda Jackson Discharging Clinician: Kenneth Hernandez Anticipated Discharge Date/Time: 04/12/23 14:06 Patient Disposition: Home, Self-Care Activity: no preference Diet: heart healthy and renal Patient Instructions: Antibiotic Form Stand Alone Forms: General Discharge Information Follow-up/Referrals: Harsha Gonzales MD [Primary Care Provider] - Discharge Medications: Continued Centrum Silver 400-250 mcg tablet,chewable 1 tablet PO DAILY cyanocobalamin (vitamin B-12) 1,000 mcg capsule 1,000 mcg PO BID azelastine 137 mcg (0.1 %) aerosol,spray 1 spray intranasal Q12H 90 Days Qty: 90 3RF Rx Instructions: administer into each nostril albuterol sulfate 90 mcg/actuation HFA aerosol inhaler 1 - 2 puff inhalation Q4-6H PRN (Reason: shortness of breath or wheezing) Qty: 8.5 5RF terazosin 2 mg capsule 2 mg PO HS Qty: 90 3RF allopurinol 300 mg tablet 300 mg PO DAILY Qty: 90 3RF fluticasone propion-salmeterol [Wixela Inhub] 250-50 mcg/dose blister with device 2 inh inhalation BID PRN (Reason: Shortness Of Breath Or Wheezing) Patient Comments: uses
[2023-04-12 14:48] LABS: Anion Gap 9 mmol/L (8-16); Blood Urea Nitrogen 40 mg/dL (9-20); Calcium 9.3 mg/dL (8.4-10.2); Carbon Dioxide 22 mmol/L (22-30); Chloride 103 mmol/L (98-107); Estimated CRCL calculation 57 ml/min; Estimated Glomerular Filt Rate 50; Glucose 107 mg/dL (65-110); Potassium 5.5 mmol/L (3.4-5.0); Sodium 134 mmol/L (137-145)
--- NOTE | 2023-04-12 16:45 | PM.IMPN ---
Progress Note: A&P Assessment and Plan (1) Hyperkalemia: Code(s): E87.5 - Hyperkalemia Status: Acute (2) Chronic kidney disease, stage 3: Code(s): N18.30 - Chronic kidney disease, stage 3 unspecified Status: Acute (3) Essential hypertension: Code(s): I10 - Essential (primary) hypertension Status: Chronic Plan Labs, imaging, EKG, and all reports were personally reviewed. Potassium will as 6.8 on arrival and with appropriate therapies potassium has gone down to 5.5. Hyperkalemia may very well be due to the Bactrim that he was recently taking in addition to lisinopril. He discontinued the Bactrim on his own. Lisinopril will be held for now. Vital signs have been stable. Creatinine is stable on review of previous labs. consult nephrology. repeat dose of lokelma. check BMP in AM. Subjective Date/time seen: 04/12/23 16:45 Interval history: asymptomatic Review of Systems Review of Systems: As per HPI. Exam Narrative: GENERAL APPEARANCE: well developed well nourished male in no acute distress HEENT: normocephalic, atraumatic, normal conjunctiva and sclera, nares patient NECK: no lymphadenopathy, thyromegaly, or JVD MOUTH: normal lips, teeth, and gums CARDIOVASCULAR: RRR, normal S1 and S2, no rub detected RESPIRATORY: clear to auscultation bilaterally ABDOMEN: soft, nontender, nondistended, positive bowel sounds present EXTREMITIES: no evidence of cyanosis, clubbing, or edema NEUROLOGICAL: alert and oriented x 3; CN II - XII intact bilaterally; no focal deficits noted Objective Data Vital Signs Vital Signs: Vital Signs - 24 hr 04/11/23 16:51 04/11/23 18:08 04/11/23 18:11 Temperature Pulse Rate 73 72 Respiratory Rate 14 18 Blood Pressure 164/76 H Pulse Oximetry 100 97 Oxygen Delivery Room Air 04/11/23 18:28 04/11/23 19:06 04/11/23 18:00 Temperature 98.7 F 97.7 F Pulse Rate 67 104 H 78 Respiratory Rate 18 19 Blood Pressure 160/76 H 174/81 H Pulse Oximetry 100 97 Oxygen Delivery 04/11/23 20:00 04/11/23 20:00 04/11/23 22:16 Temperature Pulse Rate 103 H 96 Respiratory Rate Blood Pressure 142/72 H Pulse Oximetry 99 Oxygen Delivery Room Air 04/11/23 22:18 04/11/23 22:00 04/11/23 23:55 Temperature 98.1 F Pulse Rate 96 97 79 Respiratory Rate 18 Blood Pressure 143/57 H Pulse Oximetry 93 Oxygen Delivery 04/11/23 23:56 04/12/23 00:00 04/12/23 02:00 Temperature Pulse Rate 84 80 Respiratory Rate Blood Pressure Pulse Oximetry Oxygen Delivery Room Air 04/12/23 03:48 04/12/23 03:49 04/12/23 04:00 Temperature 97.7 F Pulse Rate 65 76 Respiratory Rate 18 Blood Pressure 129/50 L Pulse Oximetry 91 Oxygen Delivery Room Air 04/12/23 06:00 04/12/23 08:00 04/12/23 08:58 Temperature 98.4 F Pulse Rate 65 72 81 Respiratory Rate 16 Blood Pressure 125/54 L Pulse Oximetry 98 Oxygen Delivery 04/12/23 08:30 04/12/23 10:00 04/12/23 12:20 Temperature Pulse Rate 78 66 75 Respiratory Rate Blood Pressure Pulse Oximetry Oxygen Delivery 04/12/23 12:00 04/12/23 13:54 04/12/23 16:00 Temperature 97.8 F Pulse Rate 65 71 71 Respiratory Rate 16 Blood Pressure 145/61 H Pulse Oximetry 99 Oxygen Delivery 04/12/23 16:00 04/12/23 16:00 04/11/23 18:15 Temperature 97.4 F L Pulse Rate 74 72 Respiratory Rate 18 18 Blood Pressure 137/72 Pulse Oximetry 99 97 Oxygen Delivery Room Air Room Air Intake/Output Intake/Output: Intake & Output 04/09/23 04/10/23 04/11/23 04/12/23 23:59 23:59 23:59 23:59 Intake Total 240 / 240 480 / 480 Output Total 440 / 440 300 / 300 Balance -200 / -200 180 / 180 Meds/Results Medications: Active Medications Generic Name Dose Route Start Last Admin Trade Name Freq PRN Reason Stop Dose Admin Albuterol 1 - 2 puff 04/11/23 20:52 Albuterol Sulfate (*Sp) Aerosol 1 Puff I
[2023-04-12] MEDS: SODIUM ZIRCONIUM CYCLOSILICATE 10 GM POWD.PACK PO (17:07)
[2023-04-12] MEDS: MONTELUKAST SODIUM 10 MG TABLET PO (20:43)
[2023-04-12] MEDS: ATORVASTATIN 40 MG TABLET PO (20:44)
[2023-04-12] MEDS: TERAZOSIN HCL 1 MG CAPSULE 2 MG PO (20:44)
[2023-04-13] VITALS (7 sets, daily range): BP systolic 128–142; BP diastolic 72–79; PULSE 58–90; RESP 18–20; TEMP 36.8–37.2; O2SAT 98–100
[2023-04-13 05:25] LABS: Anion Gap 7 mmol/L (8-16); Blood Urea Nitrogen 37 mg/dL (9-20); Calcium 9.2 mg/dL (8.4-10.2); Carbon Dioxide 23 mmol/L (22-30); Chloride 105 mmol/L (98-107); Estimated CRCL calculation 66 ml/min; Estimated Glomerular Filt Rate 59; Glucose 109 mg/dL (65-110); Potassium 4.7 mmol/L (3.4-5.0); Sodium 135 mmol/L (137-145)
[2023-04-13] MEDS: ESCITALOPRAM OXALATE 10 MG TABLET PO (09:23)
[2023-04-13] MEDS: CYANOCOBALAMIN 1,000 MCG TABLET 1000 MCG PO (09:24)
[2023-04-13] MEDS: LABETALOL HCL 100 MG TABLET 200 MG PO (09:24)
== END 2023-04-13 10:16 | disposition home or self-care (01) ==
LOC: ANHED 13:10 → ANHIMU 04-12 09:41 → ANH3MEDSUR 04-13 14:38 → ANHIMU 04-13 14:38
PROVIDERS: Physician Assistant; Preventive Medicine Aerospace Medicine; Admitting Provider Family Medicine; Emergency Provider Physician Assistant; PCP Family Medicine; Visit Provider Hospitalist
DX: E87.5 Hyperkalemia (principal); N18.31 Chronic kidney disease, stage 3a; I12.9 Hypertensive chronic kidney disease with stage 1 through stage 4 chronic kidney disease, or unspecified chronic kidney disease; D64.9 Anemia, unspecified; E78.5 Hyperlipidemia, unspecified; Z85.820 Personal history of malignant melanoma of skin
CPT/HCPCS: 36415; 80048; 80053; 81001; 82948; 83735; 84100; 85025; 85027; 85055; 93005; 94640; 96374; 96375; 96376; 99285; A9270; G0378; J0612; J1815; J1940

== ENCOUNTER 2023-04-14 08:05 | Outpatient (CLI) | payer MEDICARE, SELFPAY ==
[2023-04-14 09:48] LABS: Anion Gap 7 mmol/L (8-16); Blood Urea Nitrogen 35 mg/dL (9-20); Calcium 9.3 mg/dL (8.4-10.2); Carbon Dioxide 25 mmol/L (22-30); Chloride 104 mmol/L (98-107); Estimated Glomerular Filt Rate 59; Glucose 110 mg/dL (65-110); Potassium 4.5 mmol/L (3.4-5.0); Sodium 136 mmol/L (137-145)
== END 2023-04-14 08:06 | disposition home or self-care (01) ==
LOC: ANHLAB 08:07
PROVIDERS: Hospitalist; PCP Family Medicine; Visit Provider Internal Medicine Hematology & Oncology
DX: E87.5 Hyperkalemia (principal)
CPT/HCPCS: 36415; 80048

== ENCOUNTER 2023-04-21 08:03 | Outpatient (CLI) | payer MEDICARE, SELFPAY ==
[2023-04-21 10:51] LABS: Alanine Aminotransferase 44 U/L (6-50); Albumin Level 3.8 g/dL (3.5-5.1); Alkaline Phosphatase 87 U/L (38-126); Anion Gap 7 mmol/L (8-16); Aspartate Amino Transferase 34 U/L (17-59); Bilirubin,Total 0.4 mg/dL (0.2-1.3); Blood Urea Nitrogen 26 mg/dL (9-20); Calcium 9.1 mg/dL (8.4-10.2); Carbon Dioxide 27 mmol/L (22-30); Chloride 105 mmol/L (98-107); Estimated Glomerular Filt Rate > 60; Glucose 109 mg/dL (65-110); Potassium 5.1 mmol/L (3.4-5.0); Sodium 139 mmol/L (137-145)
== END 2023-04-21 08:04 | disposition home or self-care (01) ==
PROVIDERS: PCP Family Medicine; Visit Provider Internal Medicine Hematology & Oncology
DX: E87.5 Hyperkalemia (principal); Z08 Encounter for follow-up examination after completed treatment for malignant neoplasm; Z85.820 Personal history of malignant melanoma of skin; L82.1 Other seborrheic keratosis; L08.9 Local infection of the skin and subcutaneous tissue, unspecified
CPT/HCPCS: 36415; 80053

== ENCOUNTER 2023-05-13 10:34 | Outpatient (CLI) | payer MEDICARE, SELFPAY ==
[2023-05-13 10:51] LABS: Basophils Percent Auto 0.7 % (0.2-1.2); Eosinophils Absolute Auto 0.2 K/mm3 (0-0.3); Eosinophils Percent Auto 3.7 % (0-4.4); Hematocrit 31.8 % (42.0-52.0); Hemoglobin 10.7 g/dL (14.0-18.0); Immature Granulocyte Absolute 0.03 K/mm3 (0.00-0.031); Immature Granulocyte Percent A 0.7 % (0-0.5); Lymphocytes Absolute Auto 0.77 K/mm3 (0.9-3.2); Lymphocytes Percent Auto 16.9 % (18.3-44.2); Mean Corpuscular HGB Conc 33.6 g/dl (32-36); Mean Corpuscular Hemoglobin 36.4 pg (26-34); Mean Corpuscular Volume 108.2 fl (80-100); Mean Platelet Volume 8.5 fl (7.4-10.4); Monocytes Absolute Auto 0.5 K/mm3 (0.1-0.6); Monocytes Percent Auto 9.9 % (2.6-8.5); Neutrophils Absolute Auto 3.1 K/mm3 (1.3-6.7); Neutrophils Percent Auto 68.1 % (45.5-73.1); Platelet Count Result 88 k/mm3 (150-375); Red Blood Count 2.94 M/mm3 (4.6-6.20); White Blood Count 4.6 K/mm3 (4.5-10.0)
[2023-05-13 12:26] LABS: Albumin Level 4.3 g/dL (3.5-5.1); Anion Gap 7 mmol/L (8-16); Blood Urea Nitrogen 24 mg/dL (9-20); Calcium 9.3 mg/dL (8.4-10.2); Carbon Dioxide 25 mmol/L (22-30); Chloride 106 mmol/L (98-107); Estimated Glomerular Filt Rate 59; Glucose 107 mg/dL (65-110); Phosphorus 3.5 mg/dL (2.5-4.5); Potassium 5.5 mmol/L (3.4-5.0); Sodium 138 mmol/L (137-145)
[2023-05-13 12:29] LABS: Creatinine Urine 119.4 mg/dL; Total Protein Urine Random 92 mg/dL; Ur Ttl Prot Creatinine Ratio 0.77 mg/mg (0-0.20)
[2023-05-13 13:08] LABS: Alanine Aminotransferase 29 U/L (6-50); Albumin Level 4.4 g/dL (3.5-5.1); Alkaline Phosphatase 82 U/L (38-126); Anion Gap 8 mmol/L (8-16); Aspartate Amino Transferase 39 U/L (17-59); Bilirubin,Total 0.8 mg/dL (0.2-1.3); Blood Urea Nitrogen 23 mg/dL (9-20); Calcium 9.2 mg/dL (8.4-10.2); Carbon Dioxide 25 mmol/L (22-30); Chloride 105 mmol/L (98-107); Estimated Glomerular Filt Rate 59; Glucose 107 mg/dL (65-110); Potassium 5.5 mmol/L (3.4-5.0); Sodium 138 mmol/L (137-145)
[2023-05-13 13:24] LABS: Iron 93 ug/dL (49-181)
[2023-05-13 13:34] LABS: Percent Iron Saturation 30 % (20-50)
[2023-05-13 14:11] LABS: Folic Acid 16.3 ng/mL (2.76->20)
== END 2023-05-13 10:35 | disposition home or self-care (01) ==
PROVIDERS: Internal Medicine Nephrology; PCP Family Medicine; Visit Provider Internal Medicine Hematology & Oncology
DX: D53.9 Nutritional anemia, unspecified (principal)
CPT/HCPCS: 36415; 80053; 80069; 82570; 82607; 82728; 82746; 83540; 83550; 84156; 85025

== ENCOUNTER 2023-05-30 08:15 | Outpatient (CLI) | payer MEDICARE, SELFPAY ==
[2023-05-30 09:48] LABS: Albumin Level 4.5 g/dL (3.5-5.1); Anion Gap 7 mmol/L (8-16); Blood Urea Nitrogen 31 mg/dL (9-20); Calcium 9.8 mg/dL (8.4-10.2); Carbon Dioxide 24 mmol/L (22-30); Chloride 105 mmol/L (98-107); Estimated Glomerular Filt Rate 54; Glucose 107 mg/dL (65-110); Phosphorus 4.3 mg/dL (2.5-4.5); Potassium 5.6 mmol/L (3.4-5.0); Sodium 136 mmol/L (137-145)
== END 2023-05-30 08:16 | disposition home or self-care (01) ==
LOC: ANHLAB 08:16
PROVIDERS: PCP Family Medicine; Visit Provider Internal Medicine Nephrology
DX: N18.31 Chronic kidney disease, stage 3a (principal)
CPT/HCPCS: 36415; 80069

== ENCOUNTER 2023-06-22 08:44 | Outpatient (CLI) | payer MEDICARE, SELFPAY ==
[2023-06-22 14:13] LABS: Albumin Level 4.4 g/dL (3.5-5.1); Anion Gap 9 mmol/L (8-16); Blood Urea Nitrogen 34 mg/dL (9-20); Calcium 9.5 mg/dL (8.4-10.2); Carbon Dioxide 23 mmol/L (22-30); Chloride 105 mmol/L (98-107); Estimated Glomerular Filt Rate 54; Glucose 101 mg/dL (65-110); Phosphorus 3.8 mg/dL (2.5-4.5); Potassium 5.6 mmol/L (3.4-5.0); Sodium 137 mmol/L (137-145)
== END 2023-06-22 08:45 | disposition home or self-care (01) ==
LOC: ANHLAB 08:45
PROVIDERS: Internal Medicine Nephrology; PCP Family Medicine; Visit Provider Internal Medicine Hematology & Oncology
DX: N18.30 Chronic kidney disease, stage 3 unspecified (principal)
CPT/HCPCS: 36415; 80069

== ENCOUNTER 2023-06-23 08:46 | Outpatient (CLI) | payer MEDICARE, SELFPAY ==
[2023-06-23 10:39] LABS: Creatinine Urine 112.1 mg/dL
[2023-06-23 10:40] LABS: Potassium Urine Random 76.8 meq/L
[2023-06-29 15:29] LABS: Renin 0.79 ng/mL/h (0.25-5.82)
== END 2023-06-23 08:47 | disposition home or self-care (01) ==
PROVIDERS: Internal Medicine Nephrology; PCP Family Medicine; Visit Provider Internal Medicine Hematology & Oncology
DX: E87.5 Hyperkalemia (principal)
CPT/HCPCS: 36415; 82088; 82533; 82570; 84133; 84244

== ENCOUNTER 2023-07-05 07:23 | Outpatient (CLI) | payer MEDICARE, SELFPAY | END 2023-07-05 07:24 | disposition home or self-care (01) | PROVIDERS: PCP Family Medicine; Visit Provider Internal Medicine Nephrology | DX: E87.5 Hyperkalemia (principal) | CPT/HCPCS: 36415; 82533; 96372; J0834 ==

== ENCOUNTER 2023-07-28 08:12 | Outpatient (CLI) | payer MEDICARE, SELFPAY ==
[2023-07-28 09:06] LABS: Anion Gap 9 mmol/L (8-16); Blood Urea Nitrogen 33 mg/dL (9-20); Carbon Dioxide 25 mmol/L (22-30); Chloride 104 mmol/L (98-107); Estimated Glomerular Filt Rate 54; Glucose 119 mg/dL (65-110); Phosphorus 3.5 mg/dL (2.5-4.5); Potassium 4.4 mmol/L (3.4-5.0); Sodium 138 mmol/L (137-145)
[2023-07-28 09:39] LABS: Creatinine Urine 92.1 mg/dL; Total Protein Urine Random 36 mg/dL; Ur Ttl Prot Creatinine Ratio 0.39 mg/mg (0-0.20)
== END 2023-07-28 08:13 | disposition home or self-care (01) ==
PROVIDERS: PCP Family Medicine; Visit Provider Internal Medicine Nephrology
DX: N18.31 Chronic kidney disease, stage 3a (principal)
CPT/HCPCS: 36415; 80069; 82570; 84156

== ENCOUNTER 2023-08-31 10:42 | Outpatient (CLI) | payer MEDICARE, SELFPAY ==
--- NOTE | ~2023-08-31 | MMUS_ITS ---
EXAMINATION: MM diagnostic jayme BI w dae, US breast BI complete HISTORY: Right breast lump TECHNIQUE: ML and CC 3-D tomosynthesis images of both breasts were performed and synthetic 2-D images were generated. CAD analysis was submitted and interpreted. High resolution bilateral complete breas t ultrasound examination including all 4 quadrants and subareolar areas was performed. COMPARISON: None BREAST PARENCHYMAL COMPOSITION: The breasts are heterogeneously dense, which may obscure small masses . FINDINGS: MAMMOGRAPHIC FINDINGS: Bilateral moderate gynecomastia is identified. No mammographic mass lesion, architectural distortion, malignant calcification, skin thickening or re traction is evident. ULTRASOUND: Thyroiditis stroma is noted bilaterally. No suspicious mass, shadowing, cyst, abnormal vascularity or other significant sonographic abnormality is detected. IMPRESSION: 1. Benign finding; bilateral gynecomastia; no mammographic or sonographic evidence of malignancy 2. Recommend clinical management as appropriate, including routine breast self and annual clinical ex amination, with supplemental mammography and/or breast ultrasound as clinically appropriate BI-RADS Category 2: Benign finding(s). Reviewed, dictated and finalized at location A. CTOR WOMEN IMPRESSION: 1. Benign finding; bilateral gynecomastia; no mammographic or sonographic evide nce of malignancy 2. Recommend clinical management as appropriate, including routine breast self and annual clinical examination, with supplemental mammography and/or breast ul trasound as clinically appropriate BI-RADS Category 2: Benign finding(s).
== END 2023-08-31 10:43 | disposition home or self-care (01) ==
PROVIDERS: PCP Family Medicine; Visit Provider Physician Assistant Medical
DX: R92.8 Other abnormal and inconclusive findings on diagnostic imaging of breast (principal)
CPT/HCPCS: 76641; 77062; 77066; G0279

== ENCOUNTER 2023-09-15 08:26 | Outpatient (CLI) | payer MEDICARE, SELFPAY ==
[2023-09-15 08:58] LABS: Basophils Percent Auto 0.6 % (0.2-1.2); Eosinophils Absolute Auto 0.3 K/mm3 (0-0.3); Eosinophils Percent Auto 4.9 % (0-4.4); Hematocrit 32.8 % (42.0-52.0); Hemoglobin 11.3 g/dL (14.0-18.0); Immature Granulocyte Absolute 0.03 K/mm3 (0.00-0.031); Immature Granulocyte Percent A 0.6 % (0-0.5); Lymphocytes Absolute Auto 0.72 K/mm3 (0.9-3.2); Lymphocytes Percent Auto 14.1 % (18.3-44.2); Mean Corpuscular HGB Conc 34.5 g/dl (32-36); Mean Corpuscular Hemoglobin 35.9 pg (26-34); Mean Corpuscular Volume 104.1 fl (80-100); Monocytes Absolute Auto 0.5 K/mm3 (0.1-0.6); Monocytes Percent Auto 10.2 % (2.6-8.5); Neutrophils Absolute Auto 3.5 K/mm3 (1.3-6.7); Neutrophils Percent Auto 69.6 % (45.5-73.1); Platelet Count Result 98 k/mm3 (150-375); Red Blood Count 3.15 M/mm3 (4.6-6.20); Red Cell Distribution Width 13.1 % (11.5-14.5); White Blood Count 5.1 K/mm3 (4.5-10.0)
[2023-09-15 09:27] LABS: Albumin Level 4.3 g/dL (3.5-5.1); Anion Gap 8 mmol/L (8-16); Blood Urea Nitrogen 32 mg/dL (9-20); Calcium 9.8 mg/dL (8.4-10.2); Carbon Dioxide 29 mmol/L (22-30); Chloride 101 mmol/L (98-107); Estimated Glomerular Filt Rate 54; Glucose 108 mg/dL (65-110); Phosphorus 3.4 mg/dL (2.5-4.5); Potassium 4.3 mmol/L (3.4-5.0); Sodium 138 mmol/L (137-145)
[2023-09-15 10:33] LABS: Creatinine Urine 78.3 mg/dL; Total Protein Urine Random 24 mg/dL; Ur Ttl Prot Creatinine Ratio 0.31 mg/mg (0-0.20)
[2023-09-15 10:34] LABS: Folic Acid > 20.0 ng/mL (2.76->20); Vitamin B12 > 1000.0 pg/mL (239-931)
== END 2023-09-15 08:27 | disposition home or self-care (01) ==
LOC: ANHLAB 08:29
PROVIDERS: Internal Medicine Nephrology; PCP Family Medicine; Visit Provider Internal Medicine Hematology & Oncology
DX: D53.9 Nutritional anemia, unspecified (principal)
CPT/HCPCS: 36415; 80069; 82570; 82607; 82746; 84156; 85025

== ENCOUNTER 2023-12-09 07:28 | Outpatient (CLI) | payer MEDICARE, SELFPAY ==
[2023-12-09 08:41] LABS: Cholesterol 177 mg/dL (0-200); HDL Direct 45 mg/dL; Triglycerides 300 mg/dL (<150)
[2023-12-09 08:56] LABS: LDL Cholesterol Direct 88 mg/dL
[2023-12-09 09:12] LABS: Prostate Specific Antigen 0.6 ng/mL (< OR = 4.0)
[2023-12-09 09:32] LABS: Hemoglobin A1C 5.2 % (<5.7)
== END 2023-12-09 07:29 | disposition home or self-care (01) ==
PROVIDERS: PCP Family Medicine; Visit Provider Physician Assistant Medical
DX: Z12.5 Encounter for screening for malignant neoplasm of prostate (principal); E11.9 Type 2 diabetes mellitus without complications; E78.5 Hyperlipidemia, unspecified
CPT/HCPCS: 36415; 80061; 83036; 84153; G0103

== ENCOUNTER 2024-01-30 07:04 | Outpatient (CLI) | payer MEDICARE, SELFPAY ==
[2024-01-30 07:40] LABS: Albumin Level 4.3 g/dL (3.5-5.1); Anion Gap 8 mmol/L (4-12); Blood Urea Nitrogen 40 mg/dL (9-20); Calcium 9.2 mg/dL (8.4-10.2); Carbon Dioxide 25 mmol/L (22-30); Chloride 106 mmol/L (98-107); Estimated Glomerular Filt Rate 46; Glucose 114 mg/dL (65-110); Phosphorus 3.8 mg/dL (2.5-4.5); Potassium 4.9 mmol/L (3.4-5.0); Sodium 139 mmol/L (137-145)
[2024-01-30 07:47] LABS: Hematocrit 32.6 % (42.0-52.0); Mean Corpuscular HGB Conc 33.7 g/dl (32-36); Mean Corpuscular Hemoglobin 36.1 pg (26-34); Mean Corpuscular Volume 106.9 fl (80-100); Mean Platelet Volume 9.6 fl (7.4-10.4); Platelet Count Result 100 k/mm3 (150-375); Red Blood Count 3.05 M/mm3 (4.6-6.20); Red Cell Distribution Width 13.3 % (11.5-14.5)
[2024-01-30 07:50] LABS: White Blood Count 4.2 K/mm3 (4.5-10.0)
[2024-01-30 08:42] LABS: Parathyroid Intact 74.3 pg/mL (7.5-53.5)
[2024-01-30 09:08] LABS: Creatinine Urine 145.9 mg/dL; Total Protein Urine Random 20 mg/dL; Ur Ttl Prot Creatinine Ratio 0.14 mg/mg (0-0.20)
== END 2024-01-30 07:05 | disposition home or self-care (01) ==
LOC: ANHLAB 07:07
PROVIDERS: PCP Family Medicine; Visit Provider Internal Medicine Nephrology
DX: E87.5 Hyperkalemia (principal); J45.20 Mild intermittent asthma, uncomplicated; I12.9 Hypertensive chronic kidney disease with stage 1 through stage 4 chronic kidney disease, or unspecified chronic kidney disease; N18.31 Chronic kidney disease, stage 3a
CPT/HCPCS: 36415; 80069; 82570; 83970; 84156; 85027

== ENCOUNTER 2024-03-27 08:56 | Outpatient (CLI) | payer MEDICARE, SELFPAY ==
[2024-03-27 09:32] LABS: Basophils Percent Auto 0.5 % (0.2-1.2); Eosinophils Absolute Auto 0.2 K/mm3 (0-0.3); Eosinophils Percent Auto 4.1 % (0-4.4); Hematocrit 33.6 % (42.0-52.0); Hemoglobin 11.2 g/dL (14.0-18.0); Immature Granulocyte Absolute 0.03 K/mm3 (0.00-0.031); Immature Granulocyte Percent A 0.5 % (0-0.5); Lymphocytes Absolute Auto 0.81 K/mm3 (0.9-3.2); Lymphocytes Percent Auto 14.5 % (18.3-44.2); Mean Corpuscular HGB Conc 33.3 g/dl (32-36); Mean Corpuscular Hemoglobin 35.3 pg (26-34); Mean Platelet Volume 9.2 fl (7.4-10.4); Monocytes Absolute Auto 0.6 K/mm3 (0.1-0.6); Monocytes Percent Auto 10.4 % (2.6-8.5); Neutrophils Absolute Auto 3.9 K/mm3 (1.3-6.7); Platelet Count Result 118 k/mm3 (150-375); Red Blood Count 3.17 M/mm3 (4.6-6.20); Red Cell Distribution Width 13.1 % (11.5-14.5); White Blood Count 5.6 K/mm3 (4.5-10.0)
[2024-03-27 10:47] LABS: Creatinine Urine 158.1 mg/dL; Sodium Urine Random 127 meq/L
[2024-03-27 16:48] LABS: Albumin Level 4.1 g/dL (3.5-5.1); Anion Gap 9 mmol/L (4-12); Blood Urea Nitrogen 22 mg/dL (9-20); Calcium 9.6 mg/dL (8.4-10.2); Carbon Dioxide 28 mmol/L (22-30); Chloride 100 mmol/L (98-107); Estimated Glomerular Filt Rate 50; Glucose 100 mg/dL (65-110); Phosphorus 3.2 mg/dL (2.5-4.5); Potassium 4.6 mmol/L (3.4-5.0); Sodium 137 mmol/L (137-145)
[2024-03-27 16:51] LABS: Alanine Aminotransferase 54 U/L (6-50); Albumin Level 4.2 g/dL (3.5-5.1); Alkaline Phosphatase 85 U/L (38-126); Anion Gap 9 mmol/L (4-12); Aspartate Amino Transferase 42 U/L (17-59); Bilirubin,Total 0.6 mg/dL (0.2-1.3); Blood Urea Nitrogen 23 mg/dL (9-20); Calcium 9.3 mg/dL (8.4-10.2); Carbon Dioxide 29 mmol/L (22-30); Chloride 99 mmol/L (98-107); Estimated Glomerular Filt Rate 50; Glucose 99 mg/dL (65-110); Potassium 4.6 mmol/L (3.4-5.0); Sodium 137 mmol/L (137-145)
[2024-03-27 18:12] LABS: Folic Acid 10.7 ng/mL (2.76->20)
== END 2024-03-27 08:57 | disposition home or self-care (01) ==
LOC: ANHLAB 08:58
PROVIDERS: Internal Medicine Nephrology; PCP Family Medicine; Visit Provider Internal Medicine Hematology & Oncology
DX: N18.31 Chronic kidney disease, stage 3a (principal); D53.9 Nutritional anemia, unspecified
CPT/HCPCS: 36415; 80053; 80069; 82570; 82607; 82746; 84300; 85025

== ENCOUNTER 2024-08-07 07:41 | Outpatient (CLI) | payer MEDICARE, SELFPAY ==
[2024-08-07 08:09] LABS: Hematocrit 34.3 % (42.0-52.0); Hemoglobin 11.5 g/dL (14.0-18.0); Mean Corpuscular HGB Conc 33.5 g/dl (32-36); Mean Corpuscular Hemoglobin 35.5 pg (26-34); Mean Corpuscular Volume 105.9 fl (80-100); Mean Platelet Volume 9.2 fl (7.4-10.4); Platelet Count Result 121 k/mm3 (150-375); Red Blood Count 3.24 M/mm3 (4.6-6.20); White Blood Count 6.1 K/mm3 (4.5-10.0)
[2024-08-07 08:28] LABS: Albumin Level 4.3 g/dL (3.5-5.1); Anion Gap 7 mmol/L (4-12); Blood Urea Nitrogen 32 mg/dL (9-20); Calcium 9.6 mg/dL (8.4-10.2); Carbon Dioxide 28 mmol/L (22-30); Chloride 103 mmol/L (98-107); Estimated Glomerular Filt Rate 53; Glucose 112 mg/dL (65-110); Phosphorus 3.6 mg/dL (2.5-4.5); Potassium 4.4 mmol/L (3.4-5.0); Sodium 138 mmol/L (137-145)
[2024-08-07 09:31] LABS: Vitamin D 25 Hydroxy 72.3 ng/mL
[2024-08-07 10:34] LABS: Creatinine Urine 103.1 mg/dL; Total Protein Urine Random 32 mg/dL; Ur Ttl Prot Creatinine Ratio 0.31 mg/mg (0-0.20)
[2024-08-07 11:59] LABS: Parathyroid Intact 24.6 pg/mL (14.5-75.2)
== END 2024-08-07 07:42 | disposition home or self-care (01) ==
PROVIDERS: PCP Family Medicine; Visit Provider Internal Medicine Nephrology
DX: N18.31 Chronic kidney disease, stage 3a (principal); E21.1 Secondary hyperparathyroidism, not elsewhere classified; J45.20 Mild intermittent asthma, uncomplicated
CPT/HCPCS: 36415; 80069; 82306; 82570; 83970; 84156; 85027

== ENCOUNTER 2024-11-14 15:19 | Outpatient (CLI) | payer MEDICARE, SELFPAY ==
--- NOTE | ~2024-11-14 | XR_ITS ---
HISTORY: R07.81 - Pleurodynia COMPARISON: 03/13/2022 TECHNIQUE: 3 views of the bilateral ribs were performed along with a frontal and lateral views of the chest. FINDINGS: Acute/subacute minimally displaced fractures of the posterior lateral margins of the right sixth, sev enth and eighth ribs Bone mineralization is age-appropriate. Bilateral pleural thickening is identified (right greater than left). Blunting of the bilateral costophrenic sulci are present, suggesting small bilateral pleural effusion s. The remainder of the lungs are clear. The cardiomediastinal silhouette is enlarged. IMPRESSION: Acute/subacute minimally displaced fractures of the posterior lateral margins of the rig ht sixth seventh and eighth ribs. Bilateral pleural thickening with small bilateral pleural effusions. Reviewed, dictated and finalized at location A. IMPRESSION: Acute/subacute minimally displaced fractures of the posterior late ral margins of the right sixth seventh and eighth ribs. Bilateral pleural thickening with small bilateral pleural effusions.
--- OUTSIDE RECORDS SUMMARY | 2024-11-14 17:17 | XMS_ITS | Clinical Summary ---
Author Organization [facility] Address [address] [place] [address] Care Team Providers Care 911 Dispatcher Name Role Phone Harsha Gonzales MD Primary Care Provider [phone] Allergies No known active allergies Medications multivitamin (MULTIPLE VITAMIN ESSENTIAL ORAL) Take by mouth. 7 Active fluticasone propion-salmet natacha (ADVAIR DISKUS) 100-50 mcg/dose disk inhaler Take by inhalation. 7 Active atorvastatin (LIPITOR) 40 mg tablet atorvastatin 40 mg tablet TK 1 T PO ONCE D 9 Active montelukast (SINGULAIR) 10 mg tablet Take by mouth. 7 Active albuterol HFA 90 mcg inhaler ProAir HFA 90 mcg/actuation aerosol inhaler INL 2 PFS PO Q 4 TO 6 H PRN 7 Active labetalol (NORMODYNE) 100 mg tablet TAKE 1 TABLET BY MOUTH TWICE DAILY 9 Active quinapril (ACCUPRIL) 40 mg tablet quinapril 40 mg tablet TK 1 T PO BID 7 Active terazosin (HYTRIN) 2 mg capsule Take by mouth. 8 Active escitalopram oxalate (LEXAPRO) 10 mg tablet Take by mouth. 7 Active flu vaccine trivalent MF59 (65 yr+)(PF)(FLUAD ) 45 mcg/0.5 mL IM syringe Fluad 65yr up(PF)45 mcg(15 mcgx3)/0.5 mL intramuscular syringe ADM 0.5ML IM UTD Active allopurinoL (ZYLOPRIM) 300 mg tablet allopurinol 300 mg tablet 9 Active labetaloL (NORMODYNE) 200 mg tablet TK 1 T PO BID 0 Active Advair Diskus 250-50 mcg/dose disk inhaler 0 Active amLODIPine (NORVASC) 5 mg tablet TAKE 1 TABLET(5 MG) BY MOUTH 1 TIME EACH DAY 0 Active chlorthalidone (HYGROTON) 25 mg tablet TAKE 1 TABLET BY MOUTH EVERY DAY 0 Active cyanocobalamin 1,000 mcg Tablet Take 1,000 mcg by mouth daily. Active chlorthalidone (HYGROTON) 25 mg tablet Take 25 mg by mouth daily. 1 Active Lokelma 5 gram Powder in Packet Take 5 Grams by mouth daily in the morning. 4 Active Active Problems Problem Noted Date Diagnosed Date CKD (chronic kidney disease) 06/02/2020 Other dietary vitamin B12 deficiency anemia 03/2019 Macrocytic anemia 06/19/2019 Encounters Date Type Department Care Team Description 10/01/2024 External Device Data STL ABSTRACTION Provider, Abstract 09/11/2024 External Device Data STL ABSTRACTION Provider, Abstract from Last 3 Months Family History Medical History Relation Name Comments Cancer Father Relation Name Status Comments Father Mother Sister Alive Social History Tobacco Use Types Packs/Day Years Used Date Smoking Tobacco: Never Smokeless Tobacco: Never Tobacco Cessation:Counseling Given: Not Answered Alcohol Use Standard Drinks/Week Comments Not Currently 0 (1 standard drink = 0.6 oz pur e alcohol) Sex and Gender Information Value Date Recorded Sex Assigned at Not on file Legal Sex Male 11:53 AM CDT Gender Identity Not on file Sexual Orientation Not on file Last Filed Vital Signs Vital Sign Reading Time Taken Comments Blood Pressure 182/85 03/28/2024 1:04 PM CDT Pulse 67 03/28/2024 1:01 PM CDT Temperature 36.5 C (97.7 F) 03/28/2024 1:01 PM CDT Respiratory Rate 18 03/28/2024 1:01 PM CDT Oxygen Saturation 92% 03/28/2024 1:01 PM CDT Inhaled Oxygen Concentration - - Weight 136.1 kg (300 lb) 03/28/2024 1:01 PM CDT Height 182.9 cm (6') 04/14/2022 2:20 PM CDT Body Mass Index 40.69 04/14/2022 2:20 PM CDT Plan of Treatment Upcoming Encounters Date Type Department Care Team (Late st Contact Info) Description 12/26/2024 1:00 PM CDT Office Visit [facility] Oncology and Hematology - [place] [address] [facility] [address] [place] [address] Wilfredo Bynum MD [address] [facility] [address] [place] [address] Health Maintenance Due Date Last Done Comments DTAP/TDAP/TD VACCINES (1 - Tdap) 1968 COLORECTAL SCREENING 1994 Colorectal Cancer Screening 1994 FIT-DNA Q 3 years 1994 FIT/FOBT Q 1 year 1994 Flex Sig/CT Colonography Q 5 years 1994 PNEUMOCOCCAL VACCINE 50+ YEA RS (1 of 1 - PCV) 10/20/1999 03/25/2016 ZOSTER VACCINE (1 of 2) 10/20/1999 INFLUENZA VACCINE (#1) 2024 05/14/2022, 2019 RSV VACCINE (60+ or ) (1 - 1-dose 75+ series) 2024 Insurance [facility] [id number] Care Teams 911 Dispatcher Relationship Specialty Start Date End Date Harsha Gonzales MD [address] [place] [address] PCP - General Family Practice 05/23/19
--- OUTSIDE RECORDS SUMMARY | 2024-11-14 17:17 | XMS_ITS | Clinical Summary ---
Author Organization [facility] Address [address] [place] [address] Care Team Providers Care High School Foreign Language Teacher Name Role Phone Unavailable Primary Care Provider Unavailabl e Social History Tobacco Use Types Packs/Day Years Used Date Smoking Tobacco: Never Assessed Sex and Gender Information Value Date Recorded Sex Assigned at Not on file Legal Sex Male 7:21 PM CDT Gender Identity Not on file Sexual Orientation Not on file Plan of Treatment Health Maintenance Due Date Last Done Comments Colorectal Cancer Screening Colonoscopy (10 Years) 1950 Hepatitis C 10/20/1967 DTaP, Tdap and Td Vaccines ( 1 - Tdap) 1968 Pneumococcal Vaccine: 50+ Ye ars (1 of 1 - PCV) 10/20/1999 Zoster Vaccines (1 of 2) 10/20/1999 COVID-19 Vaccine (1 - 2023-2 5 season) 2024 RSV Immunization or 60+ Years (1 - 1-dose 75+ series) 2024 Meningococcal B Vaccine Aged Out No l onger eligible based on patient's age to complete this topic Meningococcal Vaccine Aged Out No leonardo maryjo eligible based on patient's age to complete this topic RSV Immunizations Under 20 Months Aged Out No longer eligible based on patient's age to complete this topic
--- OUTSIDE RECORDS SUMMARY | 2024-11-14 17:17 | XMS_ITS | Referral Summary ---
Author Organization [facility] Address [address] [place] [address] Phone Care Team Providers Care Assembler Utility Buildings Name Role Phone Harsha Gonzales MD Primary Care Provider [phone] Allergies No known active allergies Medications azelastine (ASTELIN) 137 mcg (0.1 %) nasal spray Administer 1 spray into each nostril 2 (two) times a day Use in each nostril as directed Active atorvastatin (LIPITOR) 40 mg tablet Take 1 tablet (40 mg total) by mouth daily Active montelukast (SINGULAIR) 10 mg tablet Take 1 tablet (10 mg total) by mouth nightly Active labetaloL (NORMODYNE,VELÁSQUEZ DATE) 200 mg tablet Take 1 tablet (200 mg total) by mouth 2 (two) times a day Active lisinopriL (PRINIVIL,ZESTR IL) 40 mg tablet Take 1 tablet (40 mg total) by mouth daily Active terazosin (HYTRIN) 2 mg capsule Take 1 capsule (2 mg total) by mouth nightly Active escitalopram (LEXAPRO) 10 mg tablet Take 1 tablet (10 mg total) by mouth daily Active allopurinoL (ZYLOPRIM) 300 mg tablet Take 1 tablet (300 mg total) by mouth daily Active Active Problems Problem Noted Date Diagnosed Date Diplopia 12/31/2022 CN palsy, left eye 12/31/2022 Social History Tobacco Use Types Packs/Day Years Used Date Smoking Tobacco: Unknown Tobacco Cessation:Counseling Given: No Sex and Gender Information Value Date Recorded Sex Assigned at Not on file Legal 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 Gender Identity Not on file Sexual Orientation Not on file Last Filed Vital Signs Vital Sign Reading Time Taken Comments Blood Pressure - - Pulse - - Temperature - - Respiratory Rate - - Oxygen Saturation - - Inhaled Oxygen Concentration - - Weight 123.8 kg (273 lb) 01/16/2023 8:12 AM CDT Height 182.9 cm (6') 01/16/2023 8:12 AM CDT Body Mass Index 37.03 01/16/2023 8:12 AM CDT Plan of Treatment Not on file Insurance [facility] MEDICARE ADVANTAGE UHC MEDICARE ADVANTAGE [place] [id number] Care Teams Assembler Utility Buildings Relationship Specialty Start Date End Date Harsha Gonzales MD PCP - General Family Medicine 11/30/22
--- OUTSIDE RECORDS SUMMARY | 2024-11-14 17:17 | XMS_ITS | Clinical Summary ---
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 Gender Identity Not on file Sexual Orientation Not on file Obstetrics History Last Filed Vital Signs Vital Sign Reading Time Taken Comments Blood Pressure - - Pulse - - Temperature - - Respiratory Rate - - Oxygen Saturation - - Inhaled Oxygen Concentration - - Weight 123.8 kg (273 lb) 01/16/2023 8:12 AM CDT Height 182.9 cm (6') 01/16/2023 8:12 AM CDT Body Mass Index 37.03 01/16/2023 8:12 AM CDT Plan of Treatment Health Maintenance Due Date Last Done Comments Colon Cancer Screening-Colonoscopy 1949 Depression Screening 1949 Fall Risk Assessment 1950 Hepatitis C Screening 1949 DTaP/Tdap/Td Vaccine (1 - Tdap) 1960 Hepatitis B Screening 10/20/1967 Zoster Vaccine (1 of 2) 10/20/1999 Abdominal Aortic Aneurysm (AAA) Screen 2014 Well Visit 65+ 2014 Pneumococcal vaccine 65+ (2 of 2 - PPSV23) 03/25/2017 03/25/2016 Influenza Vaccine (Season Ended) 2025 05/14/20 22 Insurance UHC MEDICARE ADVANTAGE UHC MEDICARE ADVANTAGE Care Teams Millwork Estimator Relationship Specialty Start Date End Date Harsha Gonzales MD PCP - General Family Medicine 11/30/22
--- OUTSIDE RECORDS SUMMARY | 2024-11-14 17:17 | XMS_ITS | Clinical Summary ---
Author Organization [facility] Address [address] [place] [address] Phone Care Team Providers Care Product Finisher Name Role Phone Harsha Gonzales MD Primary Care Provider [phone] Allergies No known active allergies Medications escitalopram (LEXAPRO) 10 MG tablet 1 daily 0 09/24/2016 Active Multiple Vitamin (MULTIVITAMIN) capsule 1 daily 0 09/24/2016 Active albuterol HFA (PROAIR HFA) 108 (90 Base) MCG/ACT inhaler 1 prn 0 09/27/2016 Act [place] montelukast (SINGULAIR) 10 MG tablet 1 daily 0 09/24/2016 Active atorvastatin (LIPITOR) 40 MG tablet Take 1 tablet (40 mg total) by mouth 1 (one) time each day. 30 tablet 11 01/08/2019 Active cyanocobalamin (VITAMIN B-12) 1000 MCG tablet Take 1,000 mcg by mouth 1 (one) time each day Active allopurinol (ZYLOPRIM) 300 MG tablet TAKE 1 TABLET(300 MG) BY MOUTH EVERY DAY 90 tablet 3 07/27/2021 Active Wixela Inhub 250-50 MCG/ACT aerosol powder As needed 09/07/2021 Acti ve azelastine (ASTELIN) 0.1 % nasal spray SPRAY ONCE IN EACH NOSTRIL EVERY 12 HOURS 11/23/2021 Active terazosin (HYTRIN) 2 MG capsule TAKE 1 CAPSULE(2 MG) BY MOUTH EVERY NIGHT 90 capsule 3 12/22/2021 Active quinapril (ACCUPRIL) 40 MG tablet Take 1 tablet (40 mg total) by mouth 1 (one) time each day 90 tablet 3 05/27/2022 Active labetalol (NORMODYNE) 200 MG tablet TAKE 1 TABLET BY MOUTH TWICE DAILY 180 tablet 3 06/08/2022 Active Active Problems Problem Noted Date Diagnosed Date Gout 03/29/2018 Essential (primary) hypertension 09/27/2016 Renal agenesis, unilateral 09/27/2016 Hyperlipidemia 09/27/2016 Overview (10/07/2018): Converted unresolved ICD9, potential mismatch. Immunizations Immunization Administration Dates Next Due Influenza TIV (IM) 05/14/2022 Pneumococcal Conjugate 03/25/2016 Family History Medical History Relation Comments Malignant neoplastic disease Father Cancer Mother Hypertensive disorder Neg Hx Kidney disease Neg Hx Kidney stone Neg Hx Relation Status Comments Father Mother Social History Tobacco Use Types Packs/Day Years Used Date Smoking Tobacco: Never Smokeless Tobacco: Never Alcohol Use Standard Drinks/Week Comments Yes 0 (1 standard drink = 0.6 oz pur e alcohol) Alcoholic Drinks/day: social Sex and Gender Information Value Date Recorded Sex Assigned at Not on file Legal Sex Male 7:46 AM [facility] Gender Identity Not on file Sexual Orientation Not on file Last Filed Vital Signs Vital Sign Reading Time Taken Comments Blood Pressure 138/70 05/18/2022 9:14 AM CDT Pulse 72 05/18/2022 9:14 AM CDT Temperature 36.3 C (97.4 F) 05/18/2022 9:14 AM CDT Respiratory Rate - - Oxygen Saturation - - Inhaled Oxygen Concentration - - Weight 119 kg (262 lb) 05/18/2022 9:14 AM CDT Height 185.4 cm (6' 1 ) 05/18/2022 9:14 AM CDT Body Mass Index 34.57 05/18/2022 9:14 AM CDT Plan of Treatment Health Maintenance Due Date Last Done Comments Pneumococcal PPSV23/PCV13 65 + Years / High and Highest Risk (1 of 5 - PCV) 1968 Influenza Vaccine (Season Ended) 2025 05/14/20 22 Insurance [employer] MEDICARE Care Teams Product Finisher Relationship Specialty Start Date End Date Harsha Gonzales MD [address] [place] [address] PCP - General Family Medicine 11/06/18
== END 2024-11-14 15:20 | disposition home or self-care (01) ==
PROVIDERS: PCP Family Medicine; Visit Provider Physician Assistant Medical
DX: S22.41XA Multiple fractures of ribs, right side, initial encounter for closed fracture (principal); J90 Pleural effusion, not elsewhere classified; X58.XXXA Exposure to other specified factors, initial encounter
CPT/HCPCS: 71046; 71110

== ENCOUNTER 2025-03-11 09:05 | Outpatient (CLI) | payer MEDICARE, SELFPAY ==
[2025-03-11 09:24] LABS: Hematocrit 32.8 % (42.0-52.0); Hemoglobin 11.0 g/dL (14.0-18.0); Mean Corpuscular HGB Conc 33.5 g/dl (32-36); Mean Corpuscular Hemoglobin 35.8 pg (26-34); Mean Corpuscular Volume 106.8 fl (80-100); Platelet Count Result 85 k/mm3 (150-375); Red Blood Count 3.07 M/mm3 (4.6-6.20); White Blood Count 4.4 K/mm3 (4.5-10.0)
--- OUTSIDE RECORDS SUMMARY | 2025-03-11 09:27 | XMS_ITS | Clinical Summary ---
Author Organization [facility] Address [address] [place] [address] Phone Care Team Providers Care Woods Rider Name Role Phone Harsha Gonzales MD Primary Care Provider + [phone] Allergies No known active allergies Medications azelastine [...] on file Legal Sex Male 6:09 AM SPORT INTERN Gender Identity Not on file Sexual Orientation [...] Pneumococcal vaccine 65+ (2 of 2 - PCV20 or PCV21) 07/201603/25/2016 Influenza Vaccine (#1) 2025 05/14/2022 Insurance UHC MEDICARE ADVANTAGE [facility] MEDICARE Address: [facility] [address] [place] [address] UHC MEDICARE ADVANTAGE Care Teams Woods Rider Relationship Specialty Start Date End Date Harsha Gonzales MD PCP - General Family Medicine 11/30/22
--- OUTSIDE RECORDS SUMMARY | 2025-03-11 09:27 | XMS_ITS | Clinical Summary ---
Author Organization [facility] Address [address] [place] [address] Phone Care Team Providers Care Rn Residential Name Role Phone Harsha Gonzales MD Primary Care Provider [phone] Allergies No known active allergies Medications escitalopram [...] on file Legal Sex Male 7:46 AM [facility] Gender Identity Not on file Sexual Orientation [...] 9:14 AM CDT Height 185.4 cm (6' 1) 05/18/2022 9:14 AM CDT Body Mass Index 34.57 05/18/2022 9:14 AM CDT Plan of Treatment Health Maintenance Due Date Last Done Comments Pneumococcal PPSV23/PCV13 65 + Years / Low and Medium Risk (1 of 2 - PCV) 10/20/1999 Influenza Vaccine (#1) 2025 05/14/2022 Insurance [employer] MEDICARE Care Teams Rn Residential Relationship Specialty Start Date End Date Harsha Gonzales MD [address] [place] [id number] PCP - General Family Medicine 11/06/18
--- OUTSIDE RECORDS SUMMARY | 2025-03-11 09:27 | XMS_ITS | Clinical Summary ---
[facility] Address [address] [address] Care Team Providers Care Environmental Journalist Name Role Phone Harsha Gonzales MD Primary Care Provider Allergies No known active allergies Medications multivitamin [...] 06/02/2020 Other dietary vitamin B12 deficiency anemia 12/0 03/2019 Macrocytic anemia 06/19/2019 Encounters Date Type Department Care Team Description 02/06/2025 External Device Data STL ABSTRACTION Provider, Abstract 02/05/2025 External Device Data STL ABSTRACTION Provider, Abstract 01/22/2025 External Device Data STL ABSTRACTION Provider, Abstract 12/12/2024 External Device Data STL ABSTRACTION Provider, Abstract 12/11/2024 External Device Data STL ABSTRACTION Provider, Abstract [...] Care Team (Late st Contact Info) Description 03/14/2025 3:30 PM CDT Office Visit [facility] Oncology and Hematology - [place] [address] [facility] [address] [place] [address] Wilfredo Bynum MD [address] [facility] [address] [place] [address] Health Maintenance Due Date Last Done Comments DTAP/TDAP/TD VACCINES (1 - Tdap) 1968 COLORECTAL SCREENING 1994 Colorectal Cancer Screening 1994 FIT-DNA Q 3 years 1994 FIT/FOBT Q 1 year 1994 Flex Sig/CT Colonography Q 5 years 1994 PNEUMOCOCCAL VACCINE 50+ YEA RS (1 of 1 - PCV) 10/20/1999 03/25/2016 ZOSTER VACCINE (1 of 2) 10/20/1999 Medicare Advantage ([place] Prev entative Visit/Annual Wellness Visit 07/25/2024 RSV VACCINE (60+ or ) (1 - 1-dose 75+ series) 2024 INFLUENZA VACCINE (#1) 2025 05/14/2022, 2019 Insurance [facility] [id number] Care Teams Environmental Journalist Relationship Specialty Start Date End Date Harsha Gonzales MD [address] [place] [address] PCP - General Family Practice 05/23/19
--- OUTSIDE RECORDS SUMMARY | 2025-03-11 09:27 | XMS_ITS | Clinical Summary ---
Author Organization [facility] Address [address] [place] [address] Care Team Providers Care College Hire Name Role Phone Unavailable Primary Care Provider [...]
[2025-03-11 09:56] LABS: Alanine Aminotransferase 51 U/L (6-50); Albumin Level 4.1 g/dL (3.5-5.1); Alkaline Phosphatase 100 U/L (38-126); Anion Gap 8 mmol/L (4-12); Anion Gap 9 mmol/L (4-12); Aspartate Amino Transferase 52 U/L (17-59); Bilirubin,Total 0.7 mg/dL (0.2-1.3); Blood Urea Nitrogen 21 mg/dL (9-20); Calcium 9.8 mg/dL (8.4-10.2); Calcium 9.9 mg/dL (8.4-10.2); Carbon Dioxide 26 mmol/L (22-30); Chloride 102 mmol/L (98-107); Estimated Glomerular Filt Rate 56; Estimated Glomerular Filt Rate 57; Glucose 114 mg/dL (65-110); Glucose 115 mg/dL (65-110); Potassium 4.5 mmol/L (3.4-5.0); Potassium 4.6 mmol/L (3.4-5.0); Sodium 136 mmol/L (137-145); Sodium 137 mmol/L (137-145); Total Protein 7.1 g/dL (6.3-8.2)
[2025-03-11 10:50] LABS: Vitamin B12 870.0 pg/mL (239-931)
[2025-03-11 12:32] LABS: Parathyroid Intact 22.6 pg/mL (14.5-75.2)
[2025-03-11 12:51] LABS: Total Protein Urine Random 30 mg/dL; Ur Ttl Prot Creatinine Ratio 0.36 mg/mg (0-0.20)
== END 2025-03-11 09:06 | disposition home or self-care (01) ==
LOC: ANHLAB 09:07
PROVIDERS: PCP Family Medicine; Referring Provider Internal Medicine Nephrology; Visit Provider Internal Medicine Hematology & Oncology
DX: I12.9 Hypertensive chronic kidney disease with stage 1 through stage 4 chronic kidney disease, or unspecified chronic kidney disease (principal); N18.31 Chronic kidney disease, stage 3a; D53.9 Nutritional anemia, unspecified
CPT/HCPCS: 36415; 80053; 80069; 82570; 82607; 83970; 84156; 85027